=== PATIENT | male | born 1935 | race Caucasian/White ===

== ENCOUNTER 2017-02-08 17:13 | Inpatient (IN) | payer MEDICARE, OTHER ==
[~2017-02-08 17:13] MED LIST: ISOVUE-370 76%-LOCM 1 ML ONE
[2017-02-08 17:53] LABS: Oxyhemoglobin 97.1 % (94.0-97.0); Sodium 141 mmol/L (135-148)
[2017-02-08 17:54] LABS: Mode NRB; Vent NO
[2017-02-08] MEDS ORDERED: Nitroglycerin 0.4 MG TAB (25 Tab Bottle) ONE (18:28)
[2017-02-08 18:37] LABS: Hematocrit 64.8 % (42.0-52.0); Mean Platelet Volume 9.7 fL (7.4-10.4); Red Blood Cell (RBC) Count 6.18 mill/uL (4.70-6.10); White Blood Cell (WBC) Count 5.8 thou/uL (4.8-10.8)
[2017-02-08 18:38] LABS: #Lymphocytes 0.5 thou/uL (1.20-3.40); #Monocytes 0.5 thou/uL (0.11-0.59); #Neutrophils 4.8 thou/uL (1.40-6.50); %Basophils 0.1 % (0.0-1.0); %Eosinophils 0.3 % (0.0-10.0); %Lymphocytes 8.4 % (21.0-51.0); %Monocytes 8.7 % (0.0-10.0)
[2017-02-08 18:47] LABS: Macrocytosis SLIGHT = 6-15 cells (100X) (0-5/hpf)
[2017-02-08 18:50] LABS: Anion Gap 17 mmol/L (10-20); BUN (Urea Nitrogen) 26 mg/dL (8.4-25.7); Calc. Creatinine Clearance 0 mL/min (70-130); Calcium 10.5 mg/dL (7.8-10.44); Carbon Dioxide 23 mmol/L (23-31); Chloride 104 mmol/L (98-107); Estimated GFR-MDRD 48
--- NOTE | 2017-02-08 18:53 | RAD ---
PORTABLE CHEST ONE VIEW 02/08/17 at 5:32 p.m. HISTORY: Dyspnea. FINDINGS/IMPRESSION: Comparison is made with exam of 08/08/14. There are changes of median sternotomy. The heart is enlarged. The aorta is tortuous. There is a lef t sided pacemaker device. There is suggestion of a small right pleural effusion. Mild infiltrate is seen in the right infrahilar region. No pneumothoraces identified. POS: [facility]
[2017-02-08 19:05] LABS: Troponin I 0.062 ng/mL (< 0.028)
[2017-02-08] MEDS ORDERED: Furosemide 40 MG/4 ML VIAL ONE (19:12)
[2017-02-08 19:43] LABS: Lactic Acid - Sepsis 1.9 mmol/L (0.5-2.2)
--- NOTE | 2017-02-08 19:48 | CT ---
CT PULMONARY ANGIOGRAM WITH IV CONTRAST AND 3D POSTPROCESSING 02/08/17 HISTORY: Dyspnea, elevated D-dimer. FINDINGS: No filling defects are seen in the contrast opacified pulmonary artery vasculature to suggest pulmon griselda embolism. There are vascular calcifications without evidence of aneurysmal dilatation of the tho racic aorta. No pericardial effusion is seen. No left sided pleural effusion is noted. There is a mo derate sized right pleural effusion with adjacent atelectatic change. There is mild atelectatic black ge in the left lung base. The heart is enlarged. There are degenerative changes in the spine. There is ascites on the upper abdominal tomograms. IMPRESSION: 1. No CT evidence of pulmonary embolism. 2. Moderate sized right pleural effusion. 3. Ascites. POS: H
[2017-02-08 20:24] LABS: Bilirubin Negative (Negative); Blood, Urine Negative (Negative); Glucose, Urine (Dipstick) Negative (Negative); Ketone, Urine Negative (Negative); Nitrite Negative (Negative); Protein, Urine (Dipstick) Trace mg/dL (Neg-Trace)
[2017-02-08] MEDS ORDERED: Lorazepam 2 MG/ML VIAL ONE (21:12)
[2017-02-08] MEDS ORDERED: Ondansetron HCl/PF 4 MG/2 ML Vial IVP PRN ×2 (22:08→22:14)
[2017-02-08] MEDS ORDERED: Acetaminophen 325 MG TAB PO PRN ×2 (22:08→22:14)
[2017-02-08] MEDS ORDERED: Ondansetron ODT 4 MG TAB SL PRN (22:08)
[2017-02-08] MEDS ORDERED: Milk Of Magnesia 30 ML UDCUP PO PRN (22:14)
[2017-02-08] MEDS ORDERED: Eucerin (Mineral Oil/Petrolatum,White) 30 gm Jar TOP PRN (22:14)
[2017-02-08] MEDS ORDERED: Nitroglycerin 0.4 MG TAB (25 Tab Bottle) SL PRN (22:14)
[2017-02-08] MEDS ORDERED: Senokot 8.6 MG TAB PO PRN (22:14)
[2017-02-08] MEDS ORDERED: Artificial Tears 18 DROP/0.9 ML EA EYE PRN (22:14)
[2017-02-08] MEDS ORDERED: Diabetic Tussin 200 MG/10 ML UDCUP PO PRN (22:14)
[2017-02-08] MEDS ORDERED: Ondansetron ODT 4 MG TAB PO PRN (22:14)
[2017-02-08] MEDS ORDERED: Sodium Chloride 0.65% Nasal 44 ML BOT EA NARE PRN (22:14)
[2017-02-08] MEDS ORDERED: Zolpidem Tartrate 5 MG TAB PO PRN (22:14)
[2017-02-08] MEDS ORDERED: Loperamide HCl 2 MG CAP PO PRN (22:14)
[2017-02-08] MEDS ORDERED: Mag-Al 1200 mg/1200 mg/30 ML UDCUP PO PRN (22:14)
[2017-02-08] MEDS ORDERED: WARFARIN PO PRN (22:33)
[2017-02-08 22:49] VITALS: BMI 27.8
--- NOTE | 2017-02-08 23:31 | HP ---
PRIMARY CARE PHYSICIAN: [facility] call admission. REASON FOR ADMISSION: Acute hypoxic respiratory failure, acute on chronic systolic and diastolic congestive heart failure exacerbation, and altered mental status. HISTORY OF PRESENT ILLNESS: An 81-year-old male who has underlying history of chronic systolic and diastolic heart failure as well as chronic atrial fibrillation on chronic anticoagulation therapy, who was not taking medications appropriately for the last few months. Patient was brought by family member because he was having increasing confusion for the last 2 weeks. Patient was hallucinating at home. He was feeling more depressed. He had a very poor appetite. He lost about 20 pounds in 2 weeks. Patient was also having increasing shortness of breath after exertion. He was getting out of bed very easily, which was new for patient for the last few weeks. Patient's daughter reports that about 5 months ago his and since then his condition is declining. Patient is feeling more depressed than ever. Patient is not on home oxygen at home and his oxygen saturation was very low in the emergency room. Even with BiPAP therapy whenever he was talking or doing exertion, his oxygen saturation was going below 88% in the emergency room. Patient was evaluated with a CT angio, which was negative for pulmonary embolism, but it did show ascites as well as moderate sized pleural effusion. He also had elevated troponin and he also found with hemoconcentration. Patient is able to ambulate by himself, but he is feeling weak all over. He denies any fever, chills, or UTI symptoms. He denies any constipation, diarrhea , melena, or hematochezia. REVIEW OF SYSTEMS: The following complete review of systems was negative, unless otherwise mentioned in the HPI or below: Constitutional: Weight loss or gain, ability to conduct usual activities. Skin: Rash, itching. Eyes: Double vision, pain. ENT/Mouth: Nose bleeding, neck stiffness, pain, tenderness. Cardiovascular: Palpitations, dyspnea on exertion, orthopnea. Respiratory: Shortness of breath, wheezing, cough, hemoptysis, fever or night sweats. Gastrointestinal: Poor appetite, abdominal pain, heartburn, nausea, vomiting, constipation, or diarrhea. Genitourinary: Urgency, frequency, dysuria, nocturia. Musculoskeletal: Pain, swelling. Neurologic/Psychiatric: Anxiety, depression. Allergy/Immunologic: Skin rash, bleeding tendency. Please see my HPI for pertinent positives and negatives. All other review of system is reviewed and negative except as mentioned in the HPI. PAST MEDICAL HISTORY: Chronic atrial fibrillation; chronic anticoagulation with warfarin; systolic and diastolic congestive heart failure; coronary artery disease, required CABG; AICD/pacemaker placement; hypertension. PAST SURGICAL HISTORY: Hernia repair, pacemaker placement, CABG x5 vessel. PSYCHIATRIC HISTORY: Anxiety and depression. FAMILY HISTORY: No strong family history of premature coronary artery disease, stroke, or cancer. SOCIAL HISTORY: Patient is . He denies any tobacco, alcohol, or illicit drug abuse. He is able to manage his daily routine sub-activities of his life. ALLERGIES: No known drug allergies. CURRENT HOME MEDICATIONS: Aspirin 81 mg p.o. daily, Cardizem-CD 180 mg p.o. daily, Coreg 6.25 mg p.o. b.i.d., warfarin 6 mg p.o. daily, Lexapro 10 mg p.o. daily, potassium chloride 10 mEq p.o. daily, clonidine p.r.n., Lasix 20 mg p.o. b.i.d., lisinopril 20 mg p.o. daily. EMERGENCY ROOM COURSE: Patient is given Tylenol 1 gram, Ativan 0.5 mg, Lasix 40 mg, and nitroglycerin 0.4 mg sublingual x2. PHYSICAL EXAMINATION: VITAL SIGNS: Currently in the emergency room, blood pressure 158/103, pulse 94 , respiratory rate 21, temperature 97.3, saturation 93% on BiPAP, weight 99.7 kilograms. GENERAL: Patient is currently alert, awake, appears slightly confused, but follows command. No obvious acute distress. HEENT: Head, normocephalic, atraumatic. Eyes, pupils are round, reactive to light. Extraocular muscle intact. ENT, oropharynx within normal limits. Moist mucous membranes. No oral lesions. No pharyngeal erythema, no exudate. NECK: Supple, no JVD, no thyromegaly, no carotid bruits. LUNGS: Air entry reduced on the right side basilar rales noted. CARDIAC: S1 and S2, appears irregular. No murmur, no gallop, no rub. ABDOMEN: Ascites present. Bowel sounds present. Nontender, nondistended. No organomegaly, no mass, no suprapubic tenderness. BACK EXAMINATION: Unremarkable, no CVA tenderness. EXTREMITIES: Upper extremities, passive movement of all joints are normal. Lower extremities, bilateral lower extremity pitting edema noted. Good peripheral pulsation. SKIN: No skin rash. HEMATOLOGICAL SYSTEM: No lymphadenopathy. PSYCHIATRIC: Normal affect. NEUROLOGIC: Nonfocal examination. SIGNIFICANT LABORATORY DATA AND IMAGIN. EKG based on my review, normal sinus rhythm, nonspecific ST-T changes. 2. Chest x-ray based on my review, pleural effusion and pulmonary vascular congestion. CT angio based on my review, right pleural effusion, ascites, no evidence of PE. 3. CBC: WBC of 5.8, hemoglobin 19.5, platelet 123, MCV 105.0. D-dimer 2.74. ABG: PH of 7.47, bicarbonate 20.7, CO2 of 29.1, O2 of 208.8, saturation 99.5. 4. BMP: Sodium 140, potassium 3.9, chloride 104, carbon dioxide 23, BUN 26, creatinine 1.42, glucose 104, calcium 10.5. 5. CK-MB 4.1, troponin I of 0.062, lactic acid 1.9. BNP of 697.3. Urinalysis , normal. ASSESSMENT AND PLAN AND IMPRESSION: 1. Acute on chronic systolic and diastolic heart failure exacerbation. This patient has bilateral lower extremity edema, basilar rales, pleural effusion on x-ray as well as ascites. He also has hypoxia, all this contributes to his systolic and diastolic heart failure based on his ejection fraction of 40% to 45 % based on echocardiography in 2015. At this point, the patient will require IMCU admission. We will consult Cardiology. We will obtain a repeat echocardiography to assess ejection fraction and other structural abnormality. We will also consult pulmonary as per protocol. Meanwhile, we will treat with Lasix 40 mg IV b.i.d., Coreg 6.25 mg p.o. b.i.d., lisinopril 40 mg p.o. daily. We will monitor input, output chart, daily weight, and laboratory profile and replace electrolytes as needed basis. 2. Acute hypoxic respiratory failure. This patient is pretty much hypoxic and requiring BiPAP in the emergency room. Pulmonary will be consulted as a protocol. He does not need any intubation at this point. Patient is doing overall well with the BiPAP and we will wean BiPAP off as needed. We will monitor closely in IMCU. This patient needs evaluation for home oxygen. This patient also will need evaluation for nocturnal oxygen therapy. 3. Elevated troponin. We will do 3 sets of cardiac enzyme. This is likely demand ischemia. We will continue with aspirin 81 mg p.o. daily along with beta -rubio and IMER inhibitor therapy. 4. Encephalopathy- Altered mental status. This patient has hemoconcentration. He appears to be depressed, underlying depression and psychiatric problem is possible, but may be because of his oxygen saturation contributing to his altered mental status. We will monitor here in the hospital. He does not have any focal neurological deficit and does not have any infectious source of infection. 5. Hemoconcentration, I am suspecting from his prolonged hypoxia and that contributing to his hemoconcentration, but we will monitor his nocturnal oxygen and we will also monitor his CBC while in the hospital. 6. Macrocytosis. We will check B12, folate level tomorrow. 7. Thrombocytopenia. We will monitor platelet count. 8. Anxiety and depression. We will continue Lexapro 10 mg p.o. daily. 9. Atrial fibrillation, chronic, currently rate controlled. We will continue Cardizem-CD 180 mg p.o. daily along with Coreg 6.25 mg p.o. b.i.d. and continue chronic anticoagulation and we will monitor PT/INR. 10. Chronic anticoagulation with warfarin. We will check PT/INR and pharmacy will manage warfarin. 11. Hypertension. Patient is already on Coreg and lisinopril therapy. We will monitor and adjust medication. 12. Deep venous thrombosis prophylaxis, the patient is already on warfarin therapy. Gastrointestinal prophylaxis, Protonix 40 mg p.o. daily. CODE STATUS: I tried to discuss code status with the patient, but patient is not able to make decision at this point. After several times discussion with the code status, he did not say yes or no for resuscitation, but he said that he is ready to go with his , but he is not clear-cutly says what his wishes are and that he and his family member agreed that he will remain as a FULL CODE overnight, but family member will discuss with him again and then we will decide what he makes decision tomorrow. DISPOSITION AND PLAN: Based on clinical course. RY
[2017-02-09 00:18] LABS: Troponin I 0.067 ng/mL (< 0.028)
[2017-02-09 04:46] LABS: Prothrombin Time 17.7 SEC (12.0-14.7)
[2017-02-09 04:49] LABS: #Lymphocytes 0.5 thou/uL (1.20-3.40); #Monocytes 0.4 thou/uL (0.11-0.59); #Neutrophils 3.9 thou/uL (1.40-6.50); %Basophils 0.5 % (0.0-1.0); %Eosinophils 0.5 % (0.0-10.0); %Lymphocytes 10.6 % (21.0-51.0); %Monocytes 8.9 % (0.0-10.0); Hematocrit 61.9 % (42.0-52.0); Mean Platelet Volume 10.1 fL (7.4-10.4); Red Blood Cell (RBC) Count 5.91 mill/uL (4.70-6.10); White Blood Cell (WBC) Count 4.9 thou/uL (4.8-10.8)
[2017-02-09] MEDS ORDERED: Furosemide 40 MG/4 ML VIAL SLOW IVP SCH ×2 (06:00→10:39)
[2017-02-09 06:19] LABS: Troponin I 0.044 ng/mL (< 0.028)
[2017-02-09 06:38] LABS: Chloride 105 mmol/L (98-107)
[2017-02-09 06:39] LABS: Calcium 10.4 mg/dL (7.8-10.44); Magnesium 2.5 mg/dL (1.6-2.6)
[2017-02-09 06:40] LABS: Globulin 3.3 g/dL (2.4-3.5); Protein, Total 7.4 g/dL (5.8-8.1)
[2017-02-09 06:41] LABS: Anion Gap 20 mmol/L (10-20); Carbon Dioxide 20 mmol/L (23-31)
[2017-02-09 06:42] LABS: Bilirubin, Total 3.4 mg/dL (0.2-1.2)
[2017-02-09 06:43] LABS: Alkaline Phosphatase 101 U/L (40-150); Calc. Creatinine Clearance 47 mL/min (70-130); Estimated GFR-MDRD 47
[2017-02-09 06:44] LABS: BUN (Urea Nitrogen) 25 mg/dL (8.4-25.7)
[2017-02-09 06:45] LABS: AST (SGOT) 27 U/L (5-34)
[2017-02-09 06:46] LABS: ALT (SGPT) 17 U/L (8-55); Uric Acid 8.9 mg/dL (3.5-7.2)
[2017-02-09] MEDS ORDERED: FLU VACC TS2017-18 (>65YR) 0.5 ML SYRINGE IM ONE (09:00)
[2017-02-09] MEDS ORDERED: Folic Acid 1 MG TAB PO SCH (09:00)
[2017-02-09] MEDS ORDERED: Cyanocobalamin (Vitamin B-12) 1,000 MCG TAB PO SCH (09:00)
[2017-02-09] MEDS ORDERED: Enoxaparin Sodium 40 MG/0.4 ML SYRINGE SC SCH (09:00)
[2017-02-09] MEDS: Lisinopril 20 MG TAB PO SCH (09:18)
[2017-02-09] MEDS: Carvedilol 6.25 MG TAB PO SCH ×2 (09:19→17:41)
[2017-02-09] MEDS: Escitalopram Oxalate 10 mg Tablet PO SCH (09:20)
[2017-02-09] MEDS: Sodium Chloride 0.45% 1,000 ML IV SCH (12:58)
--- NOTE | 2017-02-09 17:39 | PDOC.PN ---
- Subjective Encounter Start Date: 02/09/17 Encounter Start Time: 17:37 breathing better off bipap no cp no f/c no n/v - Objective Resuscitation Status: Resuscitation Status FULL:Full Resuscitation MAR Reviewed: Yes Vital Signs & Weight: Vital Signs (12 hours) Temp Pulse Resp BP BP Pulse Ox 02/09/17 16:13 70 16 106/63 96 02/09/17 15:08 97.7 F 70 18 94/63 98 02/09/17 13:31 70 12 02/09/17 12:00 97.7 F 69 18 105/66 100 02/09/17 09:19 130/74 02/09/17 09:18 130/74 02/09/17 07:29 96.9 F L 100 20 100 02/09/17 07:00 96.9 F L 100 20 154/91 H 100 02/09/17 06:30 80 20 154/91 H 100 02/09/17 06:22 100 02/09/17 06:17 93 16 Weight Weight 188 lb 6.4 oz I&O: 02/08/17 02/09/17 02/10/17 06:59 06:59 06:59 Intake Total 100 240 Output Total 800 2500 Balance -700 -2260 Result Diagrams: 02/09/17 04:26 02/09/17 05:37 Phys Exam - Physical Examination Constitutional: NAD HEENT: moist MMs Neck: no JVD some bibasilar rales Cardiovascular: no significant murmur, irregular Gastrointestinal: non-tender Musculoskeletal: pulses present Neurological: moves all 4 limbs Psychiatric: A&O x 3 Dx/Plan (1) Acute respiratory failure Code(s): J96.00 - ACUTE RESPIRATORY FAILURE, UNSP W HYPOXIA OR HYPERCAPNIA Status: Acute (2) Afib Code(s): I48.91 - UNSPECIFIED ATRIAL FIBRILLATION Status: Acute (3) CAD (coronary artery disease) Code(s): I25.10 - ATHSCL HEART DISEASE OF [place] CORONARY ARTERY W/O ANG PCTRS Status: Acute Comment: s/p aicd (4) Acute on chronic combined systolic and diastolic CHF (congestive heart failure) Code(s): I50.43 - ACUTE ON CHRONIC COMBINED SYSTOLIC AND DIASTOLIC HRT FAIL Status: Acute - Plan * cont lasix * pt/ot * monitor lytes
[2017-02-09] MEDS: Warfarin Sodium 5 MG TAB PO SCH (17:41)
--- NOTE | 2017-02-09 20:43 | CON ---
DATE OF CONSULTATION: 02/09/2017 HISTORY OF PRESENT ILLNESS: Mr. Ferris is a very pleasant 81-year-old male. I interviewed him and his daughter. Apparently, he lost his 5 months ago. He told me very quickly the God gave him the best a man could have. He has lost all desire to live since that time. He did say he is r edoing 3 homes and wants to get them finished, but he quit eating, quit taking all of his medication s, quit drinking. He has been progressively less active. He has been in the hospital here since 2014, although he was seen in the emergency room in September for c omplaints of abdominal discomfort. FAMILY HISTORY: Negative for lung disease at an early age. SOCIAL HISTORY: He is a nonsmoker, nondrinker. REVIEW OF SYSTEMS: Otherwise negative. PHYSICAL EXAMINATION: VITAL SIGNS: Afebrile, heart rate is in the 60s. Blood pressure 130/74, respiratory rate 17, oxime try is 100% on 2 liters. HEAD AND NECK: Unremarkable. LUNGS: Remarkable for decreased breath sounds at his right base. HEART: Regular rhythm, no S3. ABDOMEN: Soft and nontender. EXTREMITIES: Without clubbing, cyanosis, or edema. LABORATORY DATA: White blood cell count 5.8, hematocrit was 64, platelets 123 hematocrit is down to 61. Sodium 141, potassium 4.2, chloride 105, bicarbonate 20, BUN 25, creatinine 1.43. IMPRESSION: Hyperosmolar state, most likely secondary to severe intravascular volume depletion. He does have a right pleural effusion on his radiograph and CT. I do not feel he has decompensated he art failure. I doubt he has polycythemia rubra vera. I doubt this is sleep apnea related. His his tory supports severe volume depletion. I suspect his baseline creatinine is about 0.6. He has very little muscle mass at this time. He should continue with hydration. He should not be given diuretics at this point. I met with him at length and his daughter and asked them to communicate about his care needs. Palliative care cons ult would be appropriate in my opinion, says he wants to get these houses finish, so it did not bere en his children with selling on unremodelled houses. I do not think medication can fix his appropri ate reactive depression over the loss of his . Counseling may be helpful. He has soledad so a urch payable manager may be helpful, but these are issues as outpatient. I will be happy to follow with the other physicians caring for him.
[2017-02-10] MEDS: Sodium Chloride 0.45% 1,000 ML IV SCH ×2 (02:10→14:47)
[2017-02-10 06:14] LABS: Prothrombin Time 18.4 SEC (12.0-14.7)
[2017-02-10 06:16] LABS: #Eosinphils 0.1 thou/uL (0.0-0.7); #Lymphocytes 0.4 thou/uL (1.20-3.40); #Monocytes 0.5 thou/uL (0.11-0.59); #Neutrophils 4.1 thou/uL (1.40-6.50); %Eosinophils 1.2 % (0.0-10.0); %Lymphocytes 7.7 % (21.0-51.0); %Monocytes 10.7 % (0.0-10.0); Mean Platelet Volume 9.7 fL (7.4-10.4); Red Blood Cell (RBC) Count 5.16 mill/uL (4.70-6.10); White Blood Cell (WBC) Count 5.1 thou/uL (4.8-10.8)
[2017-02-10 06:31] LABS: Anion Gap 13 mmol/L (10-20); BUN (Urea Nitrogen) 23 mg/dL (8.4-25.7); BUN/Creatinine Ratio 17.97; Calc. Creatinine Clearance 53 mL/min (70-130); Calcium 9.2 mg/dL (7.8-10.44); Carbon Dioxide 27 mmol/L (23-31); Chloride 102 mmol/L (98-107); Estimated GFR-MDRD 54; Magnesium 2.3 mg/dL (1.6-2.6); Phosphorus 3.7 mg/dL (2.3-4.7)
[2017-02-10] MEDS: Lisinopril 20 MG TAB PO SCH (08:00)
[2017-02-10] MEDS: Escitalopram Oxalate 10 mg Tablet PO SCH (08:00)
[2017-02-10] MEDS: Carvedilol 6.25 MG TAB PO SCH ×2 (08:01→16:36)
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
--- NOTE | 2017-02-10 14:58 | PDOC.PN ---
- Subjective Encounter Start Date: 02/10/17 Encounter Start Time: 11:45 Subjective: feels better, no sob - Objective Resuscitation Status: Resuscitation Status DNR:Do Not Resuscitate MAR Reviewed: Yes Vital Signs & Weight: Vital Signs (12 hours) Temp Pulse Resp BP BP BP Pulse Ox 02/10/17 12:00 97.6 F 69 18 109/71 97 02/10/17 11:38 75 12 95 02/10/17 08:01 121/84 02/10/17 08:00 97.5 F L 74 18 121/84 121/84 93 L 02/10/17 06:33 76 12 99 02/10/17 04:25 97.5 F L 70 18 117/72 96 Weight Weight 188 lb 6.4 oz I&O: 02/09/17 02/10/17 02/11/17 06:59 06:59 06:59 Intake Total 100 2135 Output Total 800 5550 Balance -700 -1319 Result Diagrams: 02/10/17 05:56 02/10/17 05:56 Phys Exam - Physical Examination HEENT: PERRLA, moist MMs Neck: no JVD, supple Respiratory: no wheezing, no rales Cardiovascular: RRR, no significant murmur Gastrointestinal: soft, non-tender, positive bowel sounds Musculoskeletal: pulses present Neurological: non-focal, moves all 4 limbs Psychiatric: A&O x 3 a bit anxious Dx/Plan (1) Dehydration Code(s): E86.0 - DEHYDRATION Status: Acute (2) CHF (congestive heart failure) Code(s): I50.9 - HEART FAILURE, UNSPECIFIED Status: Chronic Qualifiers: Congestive heart failure type: combined (3) Afib Code(s): I48.91 - UNSPECIFIED ATRIAL FIBRILLATION Status: Chronic Qualifiers: Atrial fibrillation type: paroxysmal Qualified Code(s): I48.0 - Paroxysmal atrial fibrillation (4) CAD (coronary artery disease) Code(s): I25.10 - ATHSCL HEART DISEASE OF [place] CORONARY ARTERY W/O ANG PCTRS Status: Chronic Qualifiers: Coronary Disease-Associated Artery/Lesion type: bypass graft [place] vs. transplanted heart: [place] heart Associated angina: without angina Qualified Code(s): I25.810 - Atherosclerosis of coronary artery bypass graft(s) without angina pectoris - Plan gentle hydration -: pastoral consult -: will need outpt counselling to be arranged, will inform his PCP on dc -: ef is 35% on echo with diastolic dysfunction -: dc plan in am, d/w . * . Review of Systems - Medications/Allergies Allergies/Adverse Reactions: Allergies Allergy/AdvReac Type Severity Reaction Status Date / Time No Known Allergies Allergy Verified 08/08/14 20:05 Medications: Current Medications Acetaminophen (Tylenol) 650 mg PO Q4H PRN PRN Reason: Headache/Fever or Pain Al Hydroxide/Mg Hydroxide (Maalox) 30 ml PO Q6H PRN PRN Reason: Heartburn or Indigestion Albuterol/Ipratropium (Duoneb) 3 ml NEB [id number] [facility] Last Admin: 02/10/17 11:38 Dose: 3 ml Artificial Tears (Tears Naturale) 0 drop EA EYE PRN PRN PRN Reason: Dry Eyes Aspirin (Aspirin Chewable) 81 mg PO DAILY [facility] Last Admin: 02/10/17 08:00 Dose: 81 mg Carvedilol (Coreg) 6.25 mg PO BID-WM [facility] Last Admin: 02/10/17 08:01 Dose: 6.25 mg Diltiazem HCl (Cardizem Cd) 180 mg PO DAILY [facility] Last Admin: 02/10/17 08:00 Dose: 180 mg Escitalopram Oxalate (Lexapro) 10 mg PO DAILY [facility] Last Admin: 02/10/17 08:00 Dose: 10 mg Guaifenesin (Robitussin Sf) 200 mg PO Q4H PRN PRN Reason: Cough Hydralazine HCl (Apresoline) 10 mg SLOW IVP Q4H PRN PRN Reason: Systolic BP > 180 Last Admin: 02/09/17 04:49 Dose: 10 mg Sodium Chloride (1/2 Normal Saline) 1,000 mls @ 75 mls/hr IV .[id number] [facility] Last Admin: 02/10/17 14:47 Dose: 1,000 mls Lisinopril (Zestril) 20 mg PO DAILY [facility] Last Admin: 02/10/17 08:00 Dose: 20 mg Loperamide HCl (Imodium) 2 mg PO PRN PRN PRN Reason: Diarrhea/Loose Stools Magnesium Hydroxide (Milk Of Magnesium) 30 ml PO DAILYPRN PRN PRN Reason: Constipation Mineral Oil/White Petrolatum (Eucerin Cream) 0 gm TOP BIDPRN PRN PRN Reason: Dry Skin Miscellaneous Medication (Pharmacy To Dose) 1 each PO PRN PRN PRN Reason: A.FIB Nitroglycerin (Nitrostat) 0.4 mg SL Q5MIN PRN PRN Reason: Chest Pain Ondansetron HCl (Zofran Odt) 4 mg PO Q6H PRN PRN Reason: Nausea/Vomiting Ondansetron HCl (Zofran) 4 mg IVP Q6H PRN PRN Reason: Nausea/Vomiting Pantoprazole Sodium (Protonix) 40 mg PO DAILY [facility] Last Admin: 02/10/17 08:00 Dose: 40 mg Senna (Senokot) 2 tab PO HSPRN PRN PRN Reason: Constipation Sodium Chloride ([place] Nasal [place] 0.65%) 0 ml EA NARE QIDPRN PRN PRN Reason: Nasal Congestion Sodium Chloride (Flush - Normal Saline) 10 ml IVF Q12HR [facility] Last Admin: 02/10/17 08:05 Dose: Not Given Sodium Chloride (Flush - Normal Saline) 10 ml IVF PRN PRN PRN Reason: Saline Flush Last Admin: 02/09/17 06:50 Dose: 10 ml Warfarin Sodium (Coumadin) 5 mg PO 1700 [facility] Last Admin: 02/09/17 17:41 Dose: 5 mg
[2017-02-10] MEDS: Warfarin Sodium 5 MG TAB PO SCH (16:37)
[2017-02-11] MEDS: Sodium Chloride 0.45% 1,000 ML IV SCH (04:07)
[2017-02-11 05:32] LABS: #Eosinphils 0.1 thou/uL (0.0-0.7); #Lymphocytes 0.5 thou/uL (1.20-3.40); #Monocytes 0.6 thou/uL (0.11-0.59); %Basophils 0.5 % (0.0-1.0); %Eosinophils 2.2 % (0.0-10.0); %Lymphocytes 8.8 % (21.0-51.0); %Monocytes 10.6 % (0.0-10.0); Hematocrit 53.4 % (42.0-52.0); Red Blood Cell (RBC) Count 5.02 mill/uL (4.70-6.10); White Blood Cell (WBC) Count 5.2 thou/uL (4.8-10.8)
[2017-02-11 05:34] LABS: Prothrombin Time 17.7 SEC (12.0-14.7)
[2017-02-11 05:47] LABS: Anion Gap 11 mmol/L (10-20); BUN (Urea Nitrogen) 24 mg/dL (8.4-25.7); BUN/Creatinine Ratio 23.76; Calc. Creatinine Clearance 67 mL/min (70-130); Calcium 8.6 mg/dL (7.8-10.44); Carbon Dioxide 24 mmol/L (23-31); Chloride 101 mmol/L (98-107); Estimated GFR-MDRD 71; Phosphorus 2.7 mg/dL (2.3-4.7)
[2017-02-11] MEDS: Escitalopram Oxalate 10 mg Tablet PO SCH (07:47)
[2017-02-11] MEDS: Lisinopril 20 MG TAB PO SCH (07:47)
[2017-02-11] MEDS: Carvedilol 6.25 MG TAB PO SCH (07:48)
[2017-02-11 11:41] VITALS: BP 124/76; TEMP 98.1
--- NOTE | 2017-02-11 11:47 | PDOC.PN ---
- Subjective Encounter Start Date: 02/11/17 Encounter Start Time: 06:45 Subjective: feels better, wants to go home and attend his court case this afternoon -: no sob - Objective Resuscitation Status: Resuscitation Status DNR:Do Not Resuscitate MAR Reviewed: Yes Vital Signs & Weight: Vital Signs (12 hours) Temp Pulse Resp BP BP BP Pulse Ox 02/11/17 11:40 98.1 F 68 20 124/76 95 02/11/17 08:08 97.6 F 71 20 134/89 97 02/11/17 08:00 97.6 F 71 20 95 02/11/17 07:48 134/89 02/11/17 07:47 134/89 02/11/17 07:01 70 18 96 02/11/17 04:00 97.8 F 73 18 109/73 96 02/11/17 01:31 99 02/11/17 00:26 69 16 96 02/11/17 00:00 98.1 F 73 18 100/64 96 Weight Admit Weight 188 lb 6.4 oz Weight 188 lb 6.4 oz I&O: 02/10/17 02/11/17 02/12/17 06:59 06:59 06:59 Intake Total 2135 2700 Output Total 5550 350 200 Balance -3415 2350 -200 Result Diagrams: 02/11/17 04:31 02/11/17 04:31 Phys Exam - Physical Examination HEENT: PERRLA, moist MMs Neck: no JVD, supple Respiratory: no wheezing, no rales Cardiovascular: RRR, no significant murmur Gastrointestinal: soft, non-tender, positive bowel sounds Musculoskeletal: no edema, pulses present Neurological: non-focal, moves all 4 limbs Psychiatric: A&O x 3 Dx/Plan (1) Dehydration Code(s): E86.0 - DEHYDRATION Status: Acute (2) CHF (congestive heart failure) Code(s): I50.9 - HEART FAILURE, UNSPECIFIED Status: Chronic Qualifiers: Congestive heart failure type: combined (3) Afib Code(s): I48.91 - UNSPECIFIED ATRIAL FIBRILLATION Status: Chronic Qualifiers: Atrial fibrillation type: paroxysmal Qualified Code(s): I48.0 - Paroxysmal atrial fibrillation (4) CAD (coronary artery disease) Code(s): I25.10 - ATHSCL HEART DISEASE OF [place] CORONARY ARTERY W/O ANG PCTRS Status: Chronic Qualifiers: Coronary Disease-Associated Artery/Lesion type: bypass graft [place] vs. transplanted heart: [place] heart Associated angina: without angina Qualified Code(s): I25.810 - Atherosclerosis of coronary artery bypass graft(s) without angina pectoris - Plan hemostable -: still has mild dehydration, wants to go home -: may dc home -: adviced to drink atleast 2 liters of free water for next 2 days -: to f/u with PCP in 1 week, will need outpt counselling for extended grief/d * .
[2017-02-11] MEDS ORDERED: Warfarin Sodium 7.5 MG TAB PO SCH (17:00)
--- NOTE | 2017-02-11 23:11 | DIS ---
DATE OF ADMISSION: 02/08/2017 DATE OF DISCHARGE: 02/11/2017 DISCHARGE DISPOSITION: To home. PRIMARY DISCHARGE DIAGNOSES: 1. Dehydration with hemoconcentration. 2. History of congestive heart failure with systolic and diastolic dysfunction , chronic atrial fibrillation with initial rapid ventricular response, resolved. 3. Coronary artery disease. 4. Depression. PROCEDURES DONE DURING HOSPITALIZATION: The patient has had CT angio chest done on the day of admission, which showed no evidence of PE. There was moderate sized right pleural effusion with ascites. Echo with 2D Doppler done showed an EF of 35-40% and diastolic dysfunction. The patient had an H\T\H of 19 and 64, with platelet count of 123 on the day of admission. His discharged H\T\H was 16 and 53. He had a white count of 5 on the day of discharge. Discharge BUN and creatinine was 24 and 1.0. Troponin I was indeterminate with peaking up to 0.06. BNP was 697. Initial BUN and creatinine were 26 and 1.4. DISCHARGE MEDICATIONS: Coumadin 6.5 mg p.o. daily, lisinopril 20 mg p.o. daily , Lexapro 10 mg p.o. daily, diltiazem CD 180 mg p.o. daily, Coreg 6.25 mg p.o. twice daily, aspirin 81 mg p.o. daily. ALLERGIES: No known drug allergies. DISCHARGE PLAN: The patient is to follow up with his primary care physician in 1 week. BRIEF COURSE DURING HOSPITALIZATION: The patient initially was brought to the emergency room as he was not taking medications appropriately and had been hallucinating at home. He was feeling more depressed with poor appetite and had lost nearly 20 pounds in 2 weeks. The patient initially required BiPAP in the ER and was placed in IMCU. Patient had severe hemoconcentration and was gently hydrated in view of his systolic and diastolic heart failure. He has had consultation with Dr. Polk. The patient appears to be depressed due to losing his and has been going downhill with not eating or drinking. He requires outpatient counseling services and psychiatrist appointment via a primary care physician. He is having a court case this afternoon and would like to be discharged this morning. He has otherwise remained hemodynamically stable and has been cleared by Pulmonology for discharge. Please see a face-to- face documentation on [facility] for the day of discharge. [facility]
== END 2017-02-11 14:00 | disposition home or self-care (01) | DRG 640 ==
LOC: ERS 17:13 → IMCU/EMU 20:30 → T4-B 02-09 20:54
PROVIDERS: ADMIT Internal Medicine; ATTEND Internal Medicine
PROC: 5A09357 Assistance with Respiratory Ventilation, Less than 24 Consecutive Hours, Continuous Positive Airway Pressure (ICD-10-PCS; principal; 2017-02-08)
DX: E86.0 Dehydration (principal); G93.40 Encephalopathy, unspecified; J96.01 Acute respiratory failure with hypoxia; E87.0 Hyperosmolality and hypernatremia; I50.42 Chronic combined systolic (congestive) and diastolic (congestive) heart failure; I11.0 Hypertensive heart disease with heart failure; D69.6 Thrombocytopenia, unspecified; I48.2 Chronic atrial fibrillation; I25.10 Atherosclerotic heart disease of native coronary artery without angina pectoris; F32.9 Major depressive disorder, single episode, unspecified; F41.9 Anxiety disorder, unspecified; Z95.810 Presence of automatic (implantable) cardiac defibrillator; Z79.01 Long term (current) use of anticoagulants
CPT/HCPCS: 36415; 71010; 71275; 80048; 80053; 80069; 81003; 82553; 82607; 82746; 82805; 83605; 83735; 83880; 84484; 84550; 85025; 85379; 85610; 87086; 90471; 90682; 90732; 93005; 93306; 94640; 94660; 96374; 96375; A4216; G0008; G0009; J1940; J2060; J7620; Q2036

== ENCOUNTER 2017-05-23 15:13 | Emergency (ER) | payer MEDICARE, OTHER ==
--- NOTE | 2017-05-23 16:58 | RAD ---
THREE VIEWS OF THE LEFT ANKLE 05/23/17 COMPARISON: None. HISTORY: Tripped on a vine two weeks ago and fell with left foot and ankle pain. FINDINGS: Three views left ankle shows no evidence of acute fracture or dislocation. Surgical clips are seen al rikki the medial malleolus. Mild soft tissue swelling is seen. No degenerative changes are present. IMPRESSION: No evidence of acute osseous abnormality. POS: [facility]
[2017-05-23 17:23] LABS: Hemoglobin 16.1 g/dL (14.0-18.0); Mean Corpuscular HGB CONC 31.5 g/dL (32.0-36.0); Mean Corpuscular Hemoglobin 33.5 pg (27.0-31.0); Platelet Count 132 thou/uL (130-400); RBC Distribution Width 14.6 % (11.5-14.5); Red Blood Cell (RBC) Count 4.81 mill/uL (4.70-6.10); White Blood Cell (WBC) Count 6.7 thou/uL (4.8-10.8)
[2017-05-23 17:39] LABS: #Lymphocytes 0.6 thou/uL (1.20-3.40); #Monocytes 0.6 thou/uL (0.11-0.59); #Neutrophils 5.5 thou/uL (1.40-6.50); %Eosinophils 0.1 % (0.0-10.0); %Monocytes 9.4 % (0.0-10.0); %Neutrophils 81.5 % (42.0-75.0); MDiff Complete? YES; Macrocytosis SLIGHT = 6-15 cells (100X) (0-5/hpf); PLT Morphology Comment Appears Adequate
[2017-05-23 17:41] LABS: ALT (SGPT) 16 U/L (8-55); AST (SGOT) 24 U/L (5-34); Albumin 4.2 g/dL (3.4-4.8); Alkaline Phosphatase 116 U/L (40-150); Anion Gap 13 mmol/L (10-20); BUN (Urea Nitrogen) 21 mg/dL (8.4-25.7); Bilirubin, Total 3.4 mg/dL (0.2-1.2); Calc. Creatinine Clearance 0 mL/min (70-130); Calcium 10.2 mg/dL (7.8-10.44); Carbon Dioxide 26 mmol/L (23-31); Chloride 105 mmol/L (98-107); Estimated GFR-MDRD 56; Globulin 3.1 g/dL (2.4-3.5); Glucose 143 mg/dL (83-110); Protein, Total 7.3 g/dL (5.8-8.1); Sodium 140 mmol/L (136-145)
--- NOTE | 2017-05-23 19:52 | ULT ---
LEFT LOWER EXTREMITY VENOUS DUPLEX STUDY: 05/23/17 HISTORY: Left lower extremity pain and edema. Deep veins of left lower extremity evaluated with ultrasound doppler, color doppler, spectral analysi s and compression. Deep veins show normal compression and blood flow. No evidence of DVT. IMPRESSION: No evidence of left lower extremity DVT. POS: [facility]
== END 2017-05-23 18:45 | disposition home or self-care (01) ==
LOC: ERS 15:13
DX: S90.812A Abrasion, left foot, initial encounter (principal); L03.116 Cellulitis of left lower limb; I25.10 Atherosclerotic heart disease of native coronary artery without angina pectoris; I10 Essential (primary) hypertension; Z79.01 Long term (current) use of anticoagulants; Z79.899 Other long term (current) drug therapy; W22.8XXA Striking against or struck by other objects, initial encounter
CPT/HCPCS: 80053; 85025; 86140; 96365; J3370

== ENCOUNTER 2017-06-12 15:18 | Emergency (ER) | payer MEDICARE, OTHER ==
[2017-06-12 17:19] LABS: #Eosinphils 0.1 thou/uL (0.0-0.7); #Lymphocytes 0.9 thou/uL (1.20-3.40); #Monocytes 0.5 thou/uL (0.11-0.59); #Neutrophils 3.2 thou/uL (1.40-6.50); %Basophils 0.8 % (0.0-1.0); %Eosinophils 1.4 % (0.0-10.0); %Lymphocytes 18.5 % (21.0-51.0); %Monocytes 10.6 % (0.0-10.0); %Neutrophils 68.8 % (42.0-75.0); Hemoglobin 14.6 g/dL (14.0-18.0); Mean Corpuscular HGB CONC 32.1 g/dL (32.0-36.0); Mean Corpuscular Hemoglobin 34.3 pg (27.0-31.0); Mean Platelet Volume 8.4 fL (7.4-10.4); Platelet Count 133 thou/uL (130-400); RBC Distribution Width 14.4 % (11.5-14.5); Red Blood Cell (RBC) Count 4.27 mill/uL (4.70-6.10); White Blood Cell (WBC) Count 4.6 thou/uL (4.8-10.8)
--- NOTE | 2017-06-12 17:35 | ULT ---
LEFT LOWER EXTREMITY VENOUS DUPLEX STUDY: 06/12/17 Ultrasound and doppler studies with color doppler, spectral analysis and compression studies performe d in the deep veins of the left lower extremity. HISTORY: Left lower extremity pain and edema. Redness. Recent injury. Deep veins of the left lower extremity evaluated included common femoral, profunda femoral, superfici al femoral, popliteal and posterior tibial veins. These findings show normal compression and blood flow. No evidence of DVT. IMPRESSION: No evidence of left lower extremity DVT. POS: [facility]
[2017-06-12 17:41] LABS: ALT (SGPT) 15 U/L (8-55); AST (SGOT) 24 U/L (5-34); Albumin 3.9 g/dL (3.4-4.8); Alkaline Phosphatase 114 U/L (40-150); Anion Gap 14 mmol/L (10-20); BUN (Urea Nitrogen) 25 mg/dL (8.4-25.7); Bilirubin, Total 1.5 mg/dL (0.2-1.2); Calc. Creatinine Clearance 0 mL/min (70-130); Carbon Dioxide 21 mmol/L (23-31); Chloride 108 mmol/L (98-107); Estimated GFR-MDRD 51; Glucose 78 mg/dL (83-110); Potassium 4.4 mmol/L (3.5-5.1); Protein, Total 6.9 g/dL (5.8-8.1); Sodium 139 mmol/L (136-145)
[2017-06-12] MEDS ORDERED: Clindamycin/D5W 900 mg/50 ml Premix Bag ONE (18:17)
== END 2017-06-12 19:20 | disposition home or self-care (01) ==
LOC: ERS 15:18
DX: S90.512D Abrasion, left ankle, subsequent encounter (principal); L03.116 Cellulitis of left lower limb; I25.10 Atherosclerotic heart disease of native coronary artery without angina pectoris; I10 Essential (primary) hypertension; X58.XXXD Exposure to other specified factors, subsequent encounter
CPT/HCPCS: 36415; 80053; 83605; 85025; 87040; 96365; J3490

== ENCOUNTER 2017-08-20 14:29 | Inpatient (IN) | payer MEDICARE, OTHER ==
[2017-08-20 16:05] LABS: #Lymphocytes 0.4 thou/uL (1.20-3.40); #Monocytes 0.4 thou/uL (0.11-0.59); #Neutrophils 3.4 thou/uL (1.40-6.50); %Eosinophils 0.4 % (0.0-10.0); %Lymphocytes 10.3 % (21.0-51.0); %Monocytes 9.6 % (0.0-10.0); %Neutrophils 79.7 % (42.0-75.0); Mean Corpuscular HGB CONC 30.7 g/dL (32.0-36.0); Mean Corpuscular Hemoglobin 33.1 pg (27.0-31.0); Mean Platelet Volume 9.4 fL (7.4-10.4); Platelet Count 113 thou/uL (130-400); RBC Distribution Width 14.5 % (11.5-14.5); Red Blood Cell (RBC) Count 5.14 mill/uL (4.70-6.10); White Blood Cell (WBC) Count 4.2 thou/uL (4.8-10.8)
[2017-08-20 16:21] LABS: Band 3 % (5-11); Large Platelets SLIGHT; Lymphocytes 3 % (21-51); MDiff Complete? YES; Macrocytosis SLIGHT = 6-15 cells (100X) (0-5/hpf); Monocytes 10 % (0-10); Neutrophil 80 % (42-75); PLT Morphology Comment Appears Decreased; Polychromasia SLIGHT = 2-3 cells (100X) (0-2/hpf); Reactive Lymphocytes 4 % (0-10)
[2017-08-20 16:24] LABS: ALT (SGPT) 19 U/L (8-55); AST (SGOT) 29 U/L (5-34); Albumin 4.2 g/dL (3.4-4.8); Alkaline Phosphatase 121 U/L (40-150); Anion Gap 15 mmol/L (10-20); BUN (Urea Nitrogen) 28 mg/dL (8.4-25.7); Bilirubin, Total 2.8 mg/dL (0.2-1.2); Calc. Creatinine Clearance 0 mL/min (70-130); Calcium 10.3 mg/dL (7.8-10.44); Carbon Dioxide 20 mmol/L (23-31); Chloride 109 mmol/L (98-107); Estimated GFR-MDRD 50; Globulin 3.2 g/dL (2.4-3.5); Glucose 114 mg/dL (83-110); Protein, Total 7.4 g/dL (5.8-8.1); Sodium 140 mmol/L (136-145)
[2017-08-20 19:49] LABS: CKMB 4.2 ng/mL (0-6.6)
[2017-08-20] MEDS ORDERED: Furosemide 40 MG/4 ML VIAL ONE (20:04)
--- NOTE | 2017-08-20 20:38 | RAD ---
SINGLE VIEW OF THE CHEST: 08/20/17 INDICATION: Dyspnea with history of lower extremity cellulitis. COMPARISON: Prior exam dated 02/08/17. FINDINGS: There is severe cardiomegaly. There is mild to moderate pulmonary vascular congestion and perihilar i nterstitial prominence likely related to edema. There is a small right sided pleural effusion. There is mild right basilar atelectasis. There is a dual lead pacemaker overlying the left chest wall. No a cute osseous abnormality is evident. IMPRESSION: Findings of CHF. POS: [facility]
[2017-08-20 21:04] LABS: INR-International Normal Ratio 1.4; Prothrombin Time 17.7 SEC (12.0-14.7)
[2017-08-20] MEDS ORDERED: Vancomycin HCl 1.5 GM in Sodium Chloride 0.9% 250 ML 300 ML IVPB SCH ×2 (21:15→21:30)
[2017-08-20] MEDS ORDERED: Nitroglycerin 2% Ointment 1 INCH/1 GM Packet ONE (21:20)
--- NOTE | 2017-08-20 21:59 | ULT ---
DOPPLER VENOUS ULTRASOUND LEFT LOWER EXTREMITY: 08/20/17 INDICATION: Left leg edema and pain. TECHNIQUE: Yates scale, color doppler and vascular duplex with spectral analysis was performed of the deep venous structures of the left lower extremity. Common femoral vein, superficial femoral vein, popliteal vei n, posterior tibial vein, proximal greater saphenous and profunda veins were assessed. FINDINGS: Normal compression, flow, and augmentation seen within the deep venous structures of the left lower e xtremity. There is subcutaneous edema within the left lower extremity. IMPRESSION: No evidence of DVT to the left lower extremity. POS: [facility]
[2017-08-20 22:42] LABS: Troponin I 0.031 ng/mL (< 0.028)
[2017-08-20] MEDS ORDERED: Ondansetron HCl/PF 4 MG/2 ML Vial IVP PRN (23:26)
[2017-08-20] MEDS ORDERED: Ondansetron ODT 4 MG TAB SL PRN (23:26)
[2017-08-20] MEDS ORDERED: Acetaminophen 325 MG TAB PO PRN (23:26)
[2017-08-21 01:19] LABS: Troponin I 0.176 ng/mL (< 0.028)
[2017-08-21] MEDS ORDERED: VANCOMYCIN/ RENALLY ADJUST ANTIBIOTICS IVPB PRN (01:30)
[2017-08-21] MEDS ORDERED: Nitroglycerin 0.4 MG TAB (25 Tab Bottle) PO PRN (01:31)
[2017-08-21] MEDS ORDERED: Acetaminophen 325 MG TAB PO PRN (01:34)
[2017-08-21] MEDS ORDERED: Calcium Carbonate 500 MG ChewTAB PO PRN (01:34)
[2017-08-21] MEDS ORDERED: Senokot 8.6 MG TAB PO PRN (01:34)
--- NOTE | 2017-08-21 01:48 | HP ---
DATE OF ADMISSION: 08/20/2017 PRIMARY CARE PHYSICIAN: Chuy Yates MD CHIEF COMPLAINT: Bilateral lower extremity redness. The patient was sent from his PCP's office. HISTORY OF PRESENT ILLNESS: The patient is an 82-year-old white male with coronary artery disease, status post CABG; chronic atrial fibrillation; congestive heart failure; and hypertension, who presented to the emergency room from his PCP's office with above complaints. Approximately 2 months ago, the patient presented to this facility with injury to his left foot along with redness and swelling. He was diagnosed with cellulitis and was discharged home on Keflex and Bactrim after IV antibiotic dose in the ER. The patient noticed some improvement after the above treatment. However, recently he noticed worsening bilateral lower extremity swelling. He also had some low grade fever, however, did not record his temperature. He has been short of breath over the past couple of days and has been unable to carry out his usual activities. He has not been taking his medications regularly. He has all of his medications at home. He denies any chest pain, palpitations, lightheadedness, dizziness, or syncope. No recent immobilization, travel reported. In the emergency room, initial vital signs showed temperature 97.7, respiration of 16, pulse rate of 89 with a blood pressure of 130/88 with O2 saturation of 98 % on room air. His BNP was 1130 with troponin of 0.030. Creatinine was 1.35 with BUN 28 and total bilirubin of 2.8. His chest x-ray showed pulmonary vascular congestion. Left lower extremity Doppler was negative for DVT. He was started on vancomycin and received 1 dose of Lasix after blood cultures. PAST MEDICAL HISTORY: 1. Coronary artery disease, status post CABG. 2. Depression without any current suicidal ideation. 3. Chronic systolic and diastolic heart failure. 4. Chronic atrial fibrillation. 5. Hypertension. 6. Anxiety. PAST SURGICAL HISTORY: 1. Hernia repair. 2. Pacemaker placement. 3. Coronary artery bypass grafting. ALLERGIES: No known drug allergies. CURRENT HOME MEDICATIONS: The patient has not been taking his medications recently. He is unable to recall all of his medications. SOCIAL HISTORY: Patient currently lives at home alone. He is . He denies any tobacco, alcohol, or drug use. He is independent of activities of daily living. FAMILY HISTORY: Negative for heart disease. REVIEW OF SYSTEMS: The following complete review of systems was negative, unless otherwise mentioned in the HPI or below: Constitutional: Weight loss or gain, ability to conduct usual activities. Skin: Rash, itching. Eyes: Double vision, pain. ENT/Mouth: Nose bleeding, neck stiffness, pain, tenderness. Cardiovascular: Palpitations, dyspnea on exertion, orthopnea. Respiratory: Shortness of breath, wheezing, cough, hemoptysis, fever or night sweats. Gastrointestinal: Poor appetite, abdominal pain, heartburn, nausea, vomiting, constipation, or diarrhea. Genitourinary: Urgency, frequency, dysuria, nocturia. Musculoskeletal: Pain, swelling. Neurologic/Psychiatric: Anxiety, depression. Allergy/Immunologic: Skin rash, bleeding tendency. PHYSICAL EXAMINATION: VITAL SIGNS: As discussed above. GENERAL: An 82-year-old male in [id number] respiratory distress. Audible wheezing heard. He is able to complete short phrases. HEENT: Head atraumatic, normocephalic. Sclerae are anicteric. Moist mucous membranes. No oral lesion. NECK: Supple. JVD elevated. No carotid bruit. LUNGS: Showed expiratory wheezing and scattered rhonchi. There were bibasilar rales. There was accessory muscle use. HEART: S1, S2 present. Regular rate and rhythm. No rubs or gallops appreciated. Healed midline scar from previous CABG. ABDOMEN: Soft, nontender, bowel sounds present. No rebound, guarding, or costovertebral angle tenderness. EXTREMITIES: Bilateral lower extremity swelling with erythema mainly over the left lower extremity. There was a wound over the posterior ankle approximately less than 2 cm without any purulent drainage. The skin was warm on palpation mainly in the left lower extremities. SKIN: As above. NEUROLOGY: Grossly nonfocal. Moves all four extremities. PSYCHIATRY: Alert, awake, oriented x3. PERIPHERAL VASCULAR: Radial pulses palpable bilaterally. MUSCULOSKELETAL: No joint swelling or tenderness. LYMPH NODES: No palpable lymph nodes in the neck. LABORATORY AND DIAGNOSTIC FINDINGS: As discussed above; 1. WBC was 4.2 with platelet count of 113, hemoglobin 17. 2. INR 1.4. 3. Creatinine last year in February was 1.01 4. Chest x-ray by my review showed pulmonary vascular congestion. EKG by my review showed paced rhythm. IMPRESSION: 1. Acute on chronic systolic and diastolic heart failure exacerbation secondary to medication noncompliance. 2. Left lower extremity cellulitis. 3. Chronic atrial fibrillation, on anticoagulation. INR subtherapeutic. Probably secondary to medication noncompliance. 4. Coronary artery disease, status post coronary artery bypass graft. 5. Anxiety, depression without any suicidal ideation. 6. Abnormal LFTS due to passive hepatic congestion. 7. Hypertension. 8. Acute kidney injury on chronic kidney disease stage 2, probably secondary to cardiorenal syndrome. 9. Chronic thrombocytopenia. 10. Leukopenia. Probably chronic. His WBC count was 4.6 in June. PLAN: The patient will be monitored on the telemetry unit. We will continue diuretics. Labs will be monitored on a daily basis. We will continue antibiotics for cellulitis. We will consult Wound Care. Heart failure counseling. We will try to arrange for home health care for discharge. Fluid restriction. Vital signs q.4 hourly. We will also check folic acid and vitamin B12 due to macrocytosis. Plan of care was discussed with the patient in detail, he stated understanding. [facility]
[2017-08-21] MEDS: cefTRIAXone\\ROCEPHIN 1 GM in Sterile Water 10 ML IVPB SCH (02:58)
[2017-08-21] MEDS: Furosemide 40 MG/4 ML VIAL SLOW IVP SCH ×2 (05:43→13:23)
[2017-08-21 06:02] LABS: #Lymphocytes 0.5 thou/uL (1.20-3.40); #Monocytes 0.4 thou/uL (0.11-0.59); #Neutrophils 2.8 thou/uL (1.40-6.50); %Eosinophils 0.6 % (0.0-10.0); %Lymphocytes 13.9 % (21.0-51.0); %Monocytes 10.1 % (0.0-10.0); %Neutrophils 75.4 % (42.0-75.0); Hemoglobin 14.4 g/dL (14.0-18.0); Mean Corpuscular Hemoglobin 33.9 pg (27.0-31.0); Mean Platelet Volume 8.5 fL (7.4-10.4); Platelet Count 102 thou/uL (130-400); Red Blood Cell (RBC) Count 4.26 mill/uL (4.70-6.10); White Blood Cell (WBC) Count 3.7 thou/uL (4.8-10.8)
[2017-08-21 06:09] LABS: ALT (SGPT) 16 U/L (8-55); AST (SGOT) 31 U/L (5-34); Albumin 3.4 g/dL (3.4-4.8); Alkaline Phosphatase 96 U/L (40-150); Anion Gap 14 mmol/L (10-20); BUN (Urea Nitrogen) 26 mg/dL (8.4-25.7); Calc. Creatinine Clearance 53 mL/min (70-130); Calcium 9.2 mg/dL (7.8-10.44); Carbon Dioxide 21 mmol/L (23-31); Chloride 110 mmol/L (98-107); Estimated GFR-MDRD 56; Globulin 2.5 g/dL (2.4-3.5); Glucose 89 mg/dL (83-110); Protein, Total 5.9 g/dL (5.8-8.1); Sodium 141 mmol/L (136-145)
[2017-08-21 06:39] LABS: Folate (Folic Acid) 3.7 ng/mL (7.0-31.4)
[2017-08-21 08:31] LABS: INR-International Normal Ratio 1.6; Prothrombin Time 19.7 SEC (12.0-14.7)
[2017-08-21] MEDS ORDERED: Non-Formulary Item 1 EACH (Potassium Chloride [Potassium Chloride] 10 MEQ) PO SCH (09:00)
[2017-08-21 09:48] LABS: CKMB 15.8 ng/mL (0-6.6); Troponin I 4.065 ng/mL (< 0.028)
[2017-08-21] MEDS: Potassium Chloride 20 MEQ TAB PO SCH ×2 (09:58→18:25)
[2017-08-21] MEDS: Famotidine 20 MG TAB PO SCH (09:58)
[2017-08-21] MEDS: Carvedilol 6.25 MG TAB PO SCH ×2 (09:58→21:26)
[2017-08-21] MEDS: Lisinopril 20 MG TAB PO SCH (09:58)
[2017-08-21] MEDS: Aspirin 81 mg Enteric Coated Tablet PO SCH (09:59)
[2017-08-21] MEDS: Escitalopram Oxalate 10 mg Tablet PO SCH (09:59)
[2017-08-21] MEDS: Docusate 100 MG CAP PO SCH ×2 (09:59→21:26)
[2017-08-21] MEDS ORDERED: Enoxaparin Sodium 80 MG/0.8 ML SYRINGE SC SCH (10:00)
[2017-08-21] MEDS: Enoxaparin Sodium 80 MG/0.8 ML SYRINGE SC SCH ×3 (13:20→21:25)
[2017-08-21 13:51] LABS: Troponin I 4.365 ng/mL (< 0.028)
--- NOTE | 2017-08-21 13:57 | PDOC.PN ---
- Subjective Encounter Start Date: 08/21/17 Encounter Start Time: 09:00 Subjective: pt up in bed no complains of chest pain or sob. - Objective Resuscitation Status: Resuscitation Status FULL:Full Resuscitation Vital Signs & Weight: Vital Signs (12 hours) Temp Pulse Resp BP Pulse Ox 08/21/17 13:15 97.4 F L 70 14 117/74 98 08/21/17 09:51 97.6 F 70 14 114/67 99 08/21/17 04:00 97.3 F L 75 16 132/60 92 L Weight Weight 185 lb 4.8 oz I&O: 08/20/17 08/21/17 08/22/17 06:59 06:59 06:59 Intake Total 400 Output Total 1000 Balance -600 Result Diagrams: 08/21/17 05:36 08/21/17 05:36 Phys Exam - Physical Examination HEENT: PERRLA, moist MMs, sclera anicteric, TM's clear, oral pharynx no lesions , 2+ tonsils Neck: no nodes, no JVD, supple, full ROM Respiratory: no wheezing, no rales, no rhonchi, wheezing present, clear to auscultation bilateral Cardiovascular: RRR, no significant murmur, no rub, gallop, irregular mid sternum scar Gastrointestinal: soft, non-tender, no distention, positive bowel sounds left leg has erythema and has a small purlent drainage Neurological: non-focal, normal sensation, moves all 4 limbs Dx/Plan - Plan 1) left leg cellulitis 2) elevated trop 3) CKD 4) CAD s/p CABG 5) acute on chronic diastolic heart failure plan: pt does have a small spot with purulent drainage. will continue vanco and ceftriaxone. We do not have Teflaro which would also cover MRSA. Pt did have significant elevated trops of 4.0 EKG indicated paced rhythm and pt has no chest pain. Did call cardiology about concerns for significant elevated trops from 0.1 to 4.0. Recommended to trend trops and monitor. Pt is on Coumadin but is subtheraputic. will add lovonox and once INR is therapeutic will discontinue lovonox. Pt is on asa/statin and lovonox. will follow closely. * . Review of Systems - Review of Systems Eyes: negative: Pain, Vision Change, Conjunctivae Inflammation, Eyelid Inflammation, Redness, Other ENT: negative: Ear Pain, Ear Discharge, Nose Pain, Nose Discharge, Nose Congestion, Mouth Pain, Mouth Swelling, Throat Pain, Throat Swelling, Other Respiratory: negative: Cough, Dry, Shortness of Breath, Hemoptysis, SOB with Excertion, Pleuritic Pain, Sputum, Wheezing Cardiovascular: negative: chest pain, palpitations, orthopnea, paroxysmal nocturnal dyspnea, edema, light headedness, other Gastrointestinal: negative: Nausea, Vomiting, Abdominal Pain, Diarrhea, Constipation, Melena, Hematochezia, Other Genitourinary: negative: Dysuria, Frequency, Incontinence, Hematuria, Retention , Other - Medications/Allergies Allergies/Adverse Reactions: Allergies Allergy/AdvReac Type Severity Reaction Status Date / Time No Known Allergies Allergy Verified 08/08/14 20:05 Medications: Current Medications Acetaminophen (Tylenol) 650 mg PO Q4H PRN PRN Reason: Headache/Fever or Pain Aspirin (Ecotrin) 81 mg PO DAILY [facility] Last Admin: 08/21/17 09:59 Dose: 81 mg Atorvastatin Calcium (Lipitor) 40 mg PO HS [facility] Calcium Carbonate (Tums) 1,000 mg PO Q4H PRN PRN Reason: Heartburn or Indigestion Carvedilol (Coreg) 6.25 mg PO BID [facility] Last Admin: 08/21/17 09:58 Dose: 6.25 mg Docusate Sodium (Colace) 100 mg PO BID [facility] Last Admin: 08/21/17 09:59 Dose: 100 mg Enoxaparin Sodium (Lovenox) 80 mg SC 0900,2100 [facility] Escitalopram Oxalate (Lexapro) 10 mg PO DAILY [facility] Last Admin: 08/21/17 09:59 Dose: 10 mg Famotidine (Pepcid) 20 mg PO DAILY [facility] Last Admin: 08/21/17 09:58 Dose: 20 mg Furosemide (Lasix) 40 mg SLOW IVP 0600,1400 [facility] Last Admin: 08/21/17 13:23 Dose: 40 mg Ceftriaxone Sodium 1 gm/ (Sterile Water) 10 mls @ 20 mls/hr IVPB Q24HR [facility] Last Admin: 08/21/17 02:58 Dose: 10 mls Vancomycin HCl 1.5 gm/ Sodium (Chloride) 300 mls @ 200 mls/hr IVPB Q24HR [facility] Latanoprost (Xalatan 0.005% Ophth Soln) 1 drop EA EYE HS [facility] Lisinopril (Zestril) 20 mg PO DAILY [facility] Last Admin: 08/21/17 09:58 Dose: 20 mg Miscellaneous Medication (Pharmacy To Dose) 1 each PO .WARFARIN NOHEMY Miscellaneous Medication (Pharmacy To Dose) 1 each IVPB PRN PRN PRN Reason: Pharmacy to dose Nitroglycerin (Nitrostat) 0.4 mg PO Q5MIN PRN PRN Reason: Chest Pain Potassium Chloride (K-Dur) 20 meq PO BID-WM [facility] Last Admin: 08/21/17 09:58 Dose: 20 meq Senna (Senokot) 2 tab PO HSPRN PRN PRN Reason: Constipation Sodium Chloride (Flush - Normal Saline) 10 ml IVF Q12HR [facility] Last Admin: 08/21/17 09:59 Dose: 10 ml Sodium Chloride (Flush - Normal Saline) 10 ml IVF PRN PRN PRN Reason: Saline Flush Last Admin: 08/21/17 13:24 Dose: 10 ml Warfarin Sodium (Coumadin) 5 mg PO 1700 NOHEMY Warfarin Sodium (Coumadin) 1.5 mg PO 1700 [facility]
[2017-08-21 14:31] VITALS: BMI 25.1
[2017-08-21 14:37] LABS: Hemoglobin A1c 5.4 % (4.0-6.0)
[2017-08-21 17:41] LABS: Critical Call Chem Troponin I RESULT DECREASING; Troponin I 3.612 ng/mL (< 0.028)
[2017-08-21] MEDS: Warfarin Sodium 5 MG TAB PO SCH (18:25)
[2017-08-21] MEDS: Warfarin Sodium 1.5 MG TAB PO SCH (18:25)
[2017-08-21] MEDS ORDERED: Atorvastatin Calcium 40 MG TAB PO SCH (21:00)
[2017-08-21] MEDS ORDERED: BIMATOPROST TOP SCH (21:00)
--- NOTE | 2017-08-21 21:12 | CON ---
DATE OF CONSULT: 05/23/17 The patient is an 82-year-old gentleman who presented with cellulitis and was noted to have an elevated troponin level. The patient has a long history of coronary artery disease. He has previously undergone coronary bypass surgery nearly 10 years ago. He has also had placement of electronic pacemaker. The patient also has a history of chronic atrial fibrillation. The patient was in his usual state of health when he recently had an injury to his foot It became swollen and he was admitted for further evaluation. The patient during his hospitalization was noted to have elevated troponin level. The patient denies having any chest discomfort. He reports dyspnea on exertion. PAST MEDICAL HISTORY: 1. Atrial fibrillation. 2. Coronary artery disease. 3. Hypertension. 4. Anxiety. PAST SURGICAL HISTORY: Hernia surgery and coronary bypass surgery. SOCIAL HISTORY: Nonsmoker. He is a hardwood finisher. MEDICATIONS: The patient has not been taking any of his medications. PHYSICAL EXAMINATION: GENERAL: This is elderly gentleman in no acute distress. VITAL SIGNS: Blood pressure 117/74. NECK: Showed no jugular venous distention. LUNGS: Coarse breath sounds bilateral. HEART: Irregular rate and rhythm, normal S1. ABDOMEN: Nondistended. EXTREMITIES: This left leg was swollen and edematous and erythematous. LABORATORY DATA: Sodium 141, potassium 4.0, chloride 110, bicarbonate 21, BUN 26, creatinine is 1.24. His troponin was 4.365. INR is 1.6. His white blood cell count was 3.7, hemoglobin 14.4, hematocrit 45.0 and his platelets were 102. His telemetry monitoring revealed electronic atrial pacemaker. IMPRESSION: 1. Non-Q-wave myocardial infarction. 2. History of coronary artery disease. 3. History of coronary bypass surgery. 4. Hypertension. 5. History of pacemaker placement. 6. Cellulitis. This gentleman presents with a non-Q-wave myocardial infarction . He is noncompliant with medications. He has not been on any cardiac medications including aspirin for the past 2 weeks. The patient states he has a long history of depression and does like to take any of medication. From a cardiac standpoint with his noncompliance would treat the patient medically. I explained the life threatening consequences of not being compliant and the need to take his aspirin daily. The patient has been treated with aspirin and Lovenox. This patient's prognosis is guarded. We will follow this patient with you through his hospitalization. [facility]
[2017-08-21] MEDS: Latanoprost 0.005% Ophth Soln 2.5 ml Bottle EA EYE SCH (21:25)
[2017-08-21] MEDS: Atorvastatin Calcium 40 MG TAB PO SCH (21:26)
[2017-08-21] MEDS: Vancomycin HCl 1.5 GM in Sodium Chloride 0.9% 250 ML 300 ML IVPB SCH (21:27)
[2017-08-22] MEDS: cefTRIAXone\\ROCEPHIN 1 GM in Sterile Water 10 ML IVPB SCH (01:26)
[2017-08-22] MEDS: Furosemide 40 MG/4 ML VIAL SLOW IVP SCH ×2 (05:23→13:57)
[2017-08-22] MEDS: Aspirin 81 mg Enteric Coated Tablet PO SCH (08:35)
[2017-08-22] MEDS: Carvedilol 6.25 MG TAB PO SCH ×2 (08:35→21:20)
[2017-08-22] MEDS: Cyanocobalamin (Vitamin B-12) 1,000 MCG TAB PO SCH (08:35)
[2017-08-22] MEDS: Lisinopril 20 MG TAB PO SCH (08:36)
[2017-08-22] MEDS: Escitalopram Oxalate 10 mg Tablet PO SCH (08:36)
[2017-08-22] MEDS: Folic Acid 1 MG TAB PO SCH (08:36)
[2017-08-22] MEDS: Potassium Chloride 20 MEQ TAB PO SCH ×2 (08:36→18:15)
[2017-08-22] MEDS: Famotidine 20 MG TAB PO SCH (08:36)
[2017-08-22] MEDS: Docusate 100 MG CAP PO SCH ×2 (08:37→21:20)
[2017-08-22 08:39] LABS: INR-International Normal Ratio 1.6
[2017-08-22 08:48] LABS: ALT (SGPT) 16 U/L (8-55); AST (SGOT) 31 U/L (5-34); Albumin 3.2 g/dL (3.4-4.8); Alkaline Phosphatase 93 U/L (40-150); Anion Gap 14 mmol/L (10-20); BUN (Urea Nitrogen) 24 mg/dL (8.4-25.7); Calc. Creatinine Clearance 51 mL/min (70-130); Calcium 9.7 mg/dL (7.8-10.44); Carbon Dioxide 22 mmol/L (23-31); Chloride 108 mmol/L (98-107); Estimated GFR-MDRD 57; Globulin 2.7 g/dL (2.4-3.5); Glucose 61 mg/dL (83-110); Magnesium 1.8 mg/dL (1.6-2.6); Protein, Total 5.9 g/dL (5.8-8.1); Sodium 140 mmol/L (136-145)
[2017-08-22 09:20] LABS: #Lymphocytes 0.4 thou/uL (1.20-3.40); #Monocytes 0.3 thou/uL (0.11-0.59); %Basophils 1.4 % (0.0-1.0); %Eosinophils 0.8 % (0.0-10.0); %Lymphocytes 15.4 % (21.0-51.0); %Monocytes 9.3 % (0.0-10.0); %Neutrophils 73.2 % (42.0-75.0); Hemoglobin 15.1 g/dL (14.0-18.0); Mean Corpuscular HGB CONC 31.4 g/dL (32.0-36.0); Mean Corpuscular Hemoglobin 33.8 pg (27.0-31.0); Mean Platelet Volume 8.9 fL (7.4-10.4); Platelet Count 107 thou/uL (130-400); Red Blood Cell (RBC) Count 4.48 mill/uL (4.70-6.10); White Blood Cell (WBC) Count 2.7 thou/uL (4.8-10.8)
--- NOTE | 2017-08-22 12:40 | PDOC.PN ---
- Subjective Encounter Start Date: 08/22/17 Encounter Start Time: 08:15 -: old records requested/rev pt feels better, edema reducing, no fever Patient seen and examined. No new complaints. No overnight events - Objective Resuscitation Status: Resuscitation Status FULL:Full Resuscitation MAR Reviewed: Yes Vital Signs & Weight: Vital Signs (12 hours) Temp Pulse Resp BP BP Pulse Ox 08/22/17 11:13 97.3 F L 71 15 134/83 95 08/22/17 08:36 128/66 08/22/17 08:35 128/66 08/22/17 08:31 97.3 F L 71 15 128/86 98 08/22/17 04:00 97.2 F L 66 18 128/89 100 Weight Admit Weight 188 lb Weight 174 lb 6 oz I&O: 08/21/17 08/22/17 08/23/17 06:59 06:59 06:59 Intake Total 400 1070 Output Total 1000 1400 Balance -600 -330 Result Diagrams: 08/22/17 08:17 08/22/17 08:17 Radiology Reviewed by me: Yes EKG Reviewed by me: Yes Phys Exam - Physical Examination Constitutional: NAD HEENT: PERRLA, moist MMs, sclera anicteric Neck: no JVD, supple Respiratory: no wheezing, no rhonchi few basal rales Cardiovascular: RRR, no significant murmur, no rub Gastrointestinal: soft, non-tender, no distention, positive bowel sounds Musculoskeletal: pulses present, edema present left leg cellulitis improving Neurological: non-focal, normal sensation, moves all 4 limbs Psychiatric: normal affect, A&O x 3 Skin: no rash, normal turgor Dx/Plan (1) Acute on chronic combined systolic and diastolic CHF (congestive heart failure) Code(s): I50.43 - ACUTE ON CHRONIC COMBINED SYSTOLIC AND DIASTOLIC HRT FAIL Status: Acute (2) Cellulitis of left lower extremity Code(s): L03.116 - CELLULITIS OF LEFT LOWER LIMB Status: Acute (3) Leucopenia Code(s): D72.819 - DECREASED WHITE BLOOD CELL COUNT, UNSPECIFIED Status: Acute (4) NSTEMI (non-ST elevated myocardial infarction) Code(s): I21.4 - NON-ST ELEVATION (NSTEMI) MYOCARDIAL INFARCTION Status: Acute (5) Noncompliance with medication regimen Code(s): Z91.14 - PATIENT'S OTHER NONCOMPLIANCE WITH MEDICATION REGIMEN Status : Acute (6) Thrombocytopenia Code(s): D69.6 - THROMBOCYTOPENIA, UNSPECIFIED Status: Acute (7) Afib Code(s): I48.91 - UNSPECIFIED ATRIAL FIBRILLATION Status: Chronic Qualifiers: Atrial fibrillation type: paroxysmal Qualified Code(s): I48.0 - Paroxysmal atrial fibrillation (8) Anxiety and depression Code(s): F41.9 - ANXIETY DISORDER, UNSPECIFIED; F32.9 - MAJOR DEPRESSIVE DISORDER, SINGLE EPISODE, UNSPECIFIED Status: Chronic (9) CAD (coronary artery disease) Code(s): I25.10 - ATHSCL HEART DISEASE OF [place] CORONARY ARTERY W/O ANG PCTRS Status: Chronic Qualifiers: Coronary Disease-Associated Artery/Lesion type: bypass graft [place] vs. transplanted heart: [place] heart Associated angina: without angina Qualified Code(s): I25.810 - Atherosclerosis of coronary artery bypass graft(s) without angina pectoris (10) Chronic anticoagulation Code(s): Z79.01 - TELEVISION SERVICER (CURRENT) USE OF ANTICOAGULANTS Status: Chronic (11) Dyslipidemia Code(s): E78.5 - HYPERLIPIDEMIA, UNSPECIFIED Status: Chronic (12) Hypertension Code(s): I10 - ESSENTIAL (PRIMARY) HYPERTENSION Status: Chronic (13) Macrocytosis Code(s): D75.89 - OTHER SPECIFIED DISEASES OF BLOOD AND BLOOD-FORMING ORGANS Status: Chronic - Plan cont current plan of care, continue antibiotics * continue IV lasix, still not euvolemic * continue vancomycin and rocephin for cellulitis, improving * repeat labs tomorrow * medication reviewed as below * symptomatic treatment * counselled for medical compliance. * start folic acid and vitamin B12 * adjust cardiac medication * monitor INR Review of Systems - Review of Systems Constitutional: negative: fever, chills, sweats, weakness, malaise, other Eyes: negative: Pain, Vision Change, Conjunctivae Inflammation, Eyelid Inflammation, Redness, Other ENT: negative: Ear Pain, Ear Discharge, Nose Pain, Nose Discharge, Nose Congestion, Mouth Pain, Mouth Swelling, Throat Pain, Throat Swelling, Other Respiratory: SOB with Excertion. negative: Cough, Dry, Shortness of Breath, Hemoptysis, Pleuritic Pain, Sputum, Wheezing Cardiovascular: orthopnea, edema. negative: chest pain, palpitations, paroxysmal nocturnal dyspnea, light headedness, other Gastrointestinal: negative: Nausea, Vomiting, Abdominal Pain, Diarrhea, Constipation, Melena, Hematochezia, Other Genitourinary: negative: Dysuria, Frequency, Incontinence, Hematuria, Retention , Other Musculoskeletal: negative: Neck Pain, Shoulder Pain, Arm Pain, Back Pain, Hand Pain, Leg Pain, Foot Pain, Other Skin: negative: Rash, Lesions, Alexander, Bruising, Other - Medications/Allergies Allergies/Adverse Reactions: Allergies Allergy/AdvReac Type Severity Reaction Status Date / Time No Known Allergies Allergy Verified 08/08/14 20:05 Medications: Current Medications Acetaminophen (Tylenol) 650 mg PO Q4H PRN PRN Reason: Headache/Fever or Pain Aspirin (Ecotrin) 81 mg PO DAILY [facility] Last Admin: 08/22/17 08:35 Dose: 81 mg Atorvastatin Calcium (Lipitor) 40 mg PO HS [facility] Last Admin: 08/21/17 21:26 Dose: 40 mg Calcium Carbonate (Tums) 1,000 mg PO Q4H PRN PRN Reason: Heartburn or Indigestion Carvedilol (Coreg) 6.25 mg PO BID [facility] Last Admin: 08/22/17 08:35 Dose: 6.25 mg Cyanocobalamin (Vitamin B-12) 1,000 mcg PO DAILY [facility] Last Admin: 08/22/17 08:35 Dose: 1,000 mcg Docusate Sodium (Colace) 100 mg PO BID [facility] Last Admin: 08/22/17 08:37 Dose: 100 mg Enoxaparin Sodium (Lovenox) 80 mg SC 0900,2100 [facility] Last Admin: 08/21/17 21:25 Dose: 80 mg Escitalopram Oxalate (Lexapro) 10 mg PO DAILY [facility] Last Admin: 08/22/17 08:36 Dose: 10 mg Famotidine (Pepcid) 20 mg PO DAILY [facility] Last Admin: 08/22/17 08:36 Dose: 20 mg Folic Acid (Folvite) 1 mg PO DAILY [facility] Last Admin: 08/22/17 08:36 Dose: 1 mg Furosemide (Lasix) 40 mg SLOW IVP 0600,1400 [facility] Last Admin: 08/22/17 05:23 Dose: 40 mg Ceftriaxone Sodium 1 gm/ (Sterile Water) 10 mls @ 20 mls/hr IVPB Q24HR [facility] Last Admin: 08/22/17 01:26 Dose: 10 mls Vancomycin HCl 1.5 gm/ Sodium (Chloride) 300 mls @ 200 mls/hr IVPB Q24HR [facility] Last Admin: 08/21/17 21:27 Dose: 300 mls Latanoprost (Xalatan 0.005% Ophth Soln) 1 drop EA EYE HS [facility] Last Admin: 08/21/17 21:25 Dose: 1 drop Lisinopril (Zestril) 20 mg PO DAILY [facility] Last Admin: 08/22/17 08:36 Dose: 20 mg Miscellaneous Medication (Pharmacy To Dose) 1 each PO .WARFARIN [facility] Miscellaneous Medication (Pharmacy To Dose) 1 each IVPB PRN PRN PRN Reason: Pharmacy to dose Nitroglycerin (Nitrostat) 0.4 mg PO Q5MIN PRN PRN Reason: Chest Pain Potassium Chloride (K-Dur) 20 meq PO BID-WM [facility] Last Admin: 08/22/17 08:36 Dose: 20 meq Senna (Senokot) 2 tab PO HSPRN PRN PRN Reason: Constipation Sodium Chloride (Flush - Normal Saline) 10 ml IVF Q12HR [facility] Last Admin: 08/22/17 08:35 Dose: 10 ml Sodium Chloride (Flush - Normal Saline) 10 ml IVF PRN PRN PRN Reason: Saline Flush Last Admin: 08/21/17 13:24 Dose: 10 ml Warfarin Sodium (Coumadin) 5 mg PO 1700 [facility] Last Admin: 08/21/17 18:25 Dose: 5 mg Warfarin Sodium (Coumadin) 1.5 mg PO 1700 [facility] Last Admin: 08/21/17 18:25 Dose: 1.5 mg
[2017-08-22] MEDS: Enoxaparin Sodium 80 MG/0.8 ML SYRINGE SC SCH ×2 (13:57→21:20)
[2017-08-22] MEDS: Warfarin Sodium 1.5 MG TAB PO SCH (18:15)
[2017-08-22] MEDS: Warfarin Sodium 5 MG TAB PO SCH (18:15)
[2017-08-22] MEDS: Vancomycin HCl 1.5 GM in Sodium Chloride 0.9% 250 ML 300 ML IVPB SCH (21:19)
[2017-08-22] MEDS: Latanoprost 0.005% Ophth Soln 2.5 ml Bottle EA EYE SCH (21:19)
[2017-08-22] MEDS: Atorvastatin Calcium 40 MG TAB PO SCH (21:20)
[2017-08-22 21:34] LABS: Vancomycin, Trough 16.1 ug/mL
[2017-08-23] MEDS: cefTRIAXone\\ROCEPHIN 1 GM in Sterile Water 10 ML IVPB SCH (03:28)
[2017-08-23 05:52] LABS: INR-International Normal Ratio 1.5; Prothrombin Time 18.9 SEC (12.0-14.7)
[2017-08-23 06:07] LABS: ALT (SGPT) 13 U/L (8-55); AST (SGOT) 24 U/L (5-34); Albumin 3.3 g/dL (3.4-4.8); Alkaline Phosphatase 92 U/L (40-150); Anion Gap 15 mmol/L (10-20); BUN (Urea Nitrogen) 24 mg/dL (8.4-25.7); Bilirubin, Total 1.4 mg/dL (0.2-1.2); Calc. Creatinine Clearance 45 mL/min (70-130); Carbon Dioxide 24 mmol/L (23-31); Chloride 105 mmol/L (98-107); Estimated GFR-MDRD 50; Globulin 2.4 g/dL (2.4-3.5); Glucose 92 mg/dL (83-110); Magnesium 1.9 mg/dL (1.6-2.6); Potassium 3.6 mmol/L (3.5-5.1); Protein, Total 5.7 g/dL (5.8-8.1); Sodium 140 mmol/L (136-145)
[2017-08-23] MEDS: Furosemide 40 MG/4 ML VIAL SLOW IVP SCH (06:07)
[2017-08-23 06:08] LABS: #Lymphocytes 0.4 thou/uL (1.20-3.40); #Monocytes 0.4 thou/uL (0.11-0.59); #Neutrophils 2.7 thou/uL (1.40-6.50); %Eosinophils 0.8 % (0.0-10.0); %Lymphocytes 10.3 % (21.0-51.0); %Monocytes 10.7 % (0.0-10.0); %Neutrophils 78.1 % (42.0-75.0); Hemoglobin 15.1 g/dL (14.0-18.0); Mean Corpuscular Hemoglobin 34.3 pg (27.0-31.0); Mean Platelet Volume 9.6 fL (7.4-10.4); Platelet Count 112 thou/uL (130-400); RBC Distribution Width 14.2 % (11.5-14.5); Red Blood Cell (RBC) Count 4.41 mill/uL (4.70-6.10); White Blood Cell (WBC) Count 3.4 thou/uL (4.8-10.8)
[2017-08-23] MEDS: Carvedilol 6.25 MG TAB PO SCH ×2 (08:57→21:12)
[2017-08-23] MEDS: Cyanocobalamin (Vitamin B-12) 1,000 MCG TAB PO SCH (08:57)
[2017-08-23] MEDS: Folic Acid 1 MG TAB PO SCH (08:57)
[2017-08-23] MEDS: Famotidine 20 MG TAB PO SCH (08:57)
[2017-08-23] MEDS: Furosemide 40 MG TAB PO SCH ×2 (08:57→14:33)
[2017-08-23] MEDS: Escitalopram Oxalate 10 mg Tablet PO SCH (08:57)
[2017-08-23] MEDS: Aspirin 81 mg Enteric Coated Tablet PO SCH (08:58)
[2017-08-23] MEDS: Docusate 100 MG CAP PO SCH ×2 (08:58→21:12)
[2017-08-23] MEDS: Lisinopril 20 MG TAB PO SCH (08:58)
[2017-08-23] MEDS: Potassium Chloride 20 MEQ TAB PO SCH ×2 (08:58→16:26)
[2017-08-23] MEDS: Enoxaparin Sodium 80 MG/0.8 ML SYRINGE SC SCH ×2 (08:58→21:13)
--- NOTE | 2017-08-23 10:53 | PDOC.CTH ---
<Rosie Harper - Last Filed: 08/23/17 16:01> Cardiology Progress Note - Subjective Awake, lying in bed, no distress. Denies chest pain, shortness of breath. Describes pain to left leg. Wants to go home soon. - Objective Vital Signs Temp Pulse Resp BP Pulse Ox 08/23/17 08:55 96.9 F L 70 16 08/23/17 08:50 96.9 F L 70 16 136/82 98 08/23/17 04:00 97.5 F L 70 15 126/70 96 Admit Weight 188 lb Weight 170 lb 4.8 oz 08/22/17 08/23/17 08/24/17 06:59 06:59 06:59 Intake Total 1070 960 Output Total 1400 1800 Balance -330 -840 - Physical Examination General/Neuro: alert & oriented x3, NAD Neck: no JVD present (supple) Lungs: CTA, unlabored respirations Heart: RRR Abdomen: NT/ND, soft Extremities: + edema B (2+ edema to LLE, erythema/warm) - Telemetry Telemetry Rhythm: VPaced 70s, occ PVC - Labs Result Diagrams: 08/23/17 05:29 08/23/17 05:29 Troponin/CKMB CK-MB (CK-2) 15.8 ng/mL (0-6.6) H* 08/21/17 09:08 Troponin I 3.612 ng/mL (< 0.028) H* 08/21/17 16:57 - Assessment/Plan PLAN: 1.NSTEMI-no chest pain, max trop 4.3. Poor compliance with medications, treat medically. No chest pain. Reinforced importance of medication adherence at home. Lovenox 1mg/kg 2.Acute on Chronic Diastolic & Systolic CHF-appears euvolemic, PO furosemide. On ACEi, carvedilol 3.HTN-stable on current regimen, continue same. 4.CAD-history of CABG. On statin, ASA. 5.Hx of PM 6. LLE Cellutlitis-IV Vancomycin, improving. Managed by primary team. <Thai Lloyd - Last Filed: 08/23/17 16:15> Cardiology Progress Note - Objective Vital Signs Temp Pulse Pulse Pulse Resp BP BP 08/23/17 12:25 68 18 08/23/17 12:03 72 76 122/70 113/70 08/23/17 08:55 96.9 F L 70 16 08/23/17 08:50 96.9 F L 70 16 BP Pulse Ox Pulse Ox Pulse Ox 08/23/17 12:25 132/81 97 08/23/17 12:03 98 99 08/23/17 08:55 08/23/17 08:50 136/82 98 Admit Weight 188 lb Weight 170 lb 4.8 oz 08/22/17 08/23/17 08/24/17 06:59 06:59 06:59 Intake Total 1070 960 Output Total 1400 1800 Balance -330 -840 - Labs Result Diagrams: 08/23/17 05:29 08/23/17 05:29 Troponin/CKMB CK-MB (CK-2) 15.8 ng/mL (0-6.6) H* 08/21/17 09:08 Troponin I 3.612 ng/mL (< 0.028) H* 08/21/17 16:57 Attending Addendum - Attending Addendum Date/Time: 08/23/17 0595 I personally evaluated the patient and discussed the management with Rosie Harper NP. I agree with the History, Examination, Assessment and Plan documented above with any addition or exceptions noted below.
--- NOTE | 2017-08-23 11:35 | PDOC.PN ---
- Subjective Encounter Start Date: 08/23/17 Encounter Start Time: 07:40 Patient seen and examined. No new complaints. No overnight events he is on room air, edema improving - Objective Resuscitation Status: Resuscitation Status FULL:Full Resuscitation MAR Reviewed: Yes Vital Signs & Weight: Vital Signs (12 hours) Temp Pulse Resp BP Pulse Ox 08/23/17 08:55 96.9 F L 70 16 08/23/17 08:50 96.9 F L 70 16 136/82 98 08/23/17 04:00 97.5 F L 70 15 126/70 96 Weight Admit Weight 188 lb Weight 170 lb 4.8 oz I&O: 08/22/17 08/23/17 08/24/17 06:59 06:59 06:59 Intake Total 1070 960 Output Total 1400 1800 Balance -330 -840 Result Diagrams: 08/23/17 05:29 08/23/17 05:29 EKG Reviewed by me: Yes Phys Exam - Physical Examination Constitutional: NAD HEENT: PERRLA, moist MMs, sclera anicteric Neck: no JVD, supple Respiratory: no wheezing, no rales, no rhonchi Cardiovascular: RRR, no significant murmur, no rub Gastrointestinal: soft, non-tender, no distention, positive bowel sounds Musculoskeletal: pulses present, edema present Neurological: non-focal, normal sensation Psychiatric: normal affect, A&O x 3 Skin: no rash, normal turgor Dx/Plan (1) Acute on chronic combined systolic and diastolic CHF (congestive heart failure) Code(s): I50.43 - ACUTE ON CHRONIC COMBINED SYSTOLIC AND DIASTOLIC HRT FAIL Status: Acute (2) Cellulitis of left lower extremity Code(s): L03.116 - CELLULITIS OF LEFT LOWER LIMB Status: Acute (3) Leucopenia Code(s): D72.819 - DECREASED WHITE BLOOD CELL COUNT, UNSPECIFIED Status: Acute (4) NSTEMI (non-ST elevated myocardial infarction) Code(s): I21.4 - NON-ST ELEVATION (NSTEMI) MYOCARDIAL INFARCTION Status: Acute (5) Noncompliance with medication regimen Code(s): Z91.14 - PATIENT'S OTHER NONCOMPLIANCE WITH MEDICATION REGIMEN Status : Acute (6) Thrombocytopenia Code(s): D69.6 - THROMBOCYTOPENIA, UNSPECIFIED Status: Acute (7) Afib Code(s): I48.91 - UNSPECIFIED ATRIAL FIBRILLATION Status: Chronic Qualifiers: Atrial fibrillation type: paroxysmal Qualified Code(s): I48.0 - Paroxysmal atrial fibrillation (8) Anxiety and depression Code(s): F41.9 - ANXIETY DISORDER, UNSPECIFIED; F32.9 - MAJOR DEPRESSIVE DISORDER, SINGLE EPISODE, UNSPECIFIED Status: Chronic (9) CAD (coronary artery disease) Code(s): I25.10 - ATHSCL HEART DISEASE OF [place] CORONARY ARTERY W/O ANG PCTRS Status: Chronic Qualifiers: Coronary Disease-Associated Artery/Lesion type: bypass graft [place] vs. transplanted heart: [place] heart Associated angina: without angina Qualified Code(s): I25.810 - Atherosclerosis of coronary artery bypass graft(s) without angina pectoris (10) Chronic anticoagulation Code(s): Z79.01 - ASSISTED (CURRENT) USE OF ANTICOAGULANTS Status: Chronic (11) Dyslipidemia Code(s): E78.5 - HYPERLIPIDEMIA, UNSPECIFIED Status: Chronic (12) Hypertension Code(s): I10 - ESSENTIAL (PRIMARY) HYPERTENSION Status: Chronic (13) Macrocytosis Code(s): D75.89 - OTHER SPECIFIED DISEASES OF BLOOD AND BLOOD-FORMING ORGANS Status: Chronic (14) Folate deficiency Code(s): E53.8 - DEFICIENCY OF OTHER SPECIFIED B GROUP VITAMINS Status: Acute - Plan cont current plan of care, continue antibiotics * now creatinine is going up, will change to lasix PO * continue vancomycin and rocephin for cellulitis * on discharge keflex and doxy * medication reviewed as below * symptomatic treatment. Review of Systems - Review of Systems ENT: negative: Ear Pain, Ear Discharge, Nose Pain, Nose Discharge, Nose Congestion, Mouth Pain, Mouth Swelling, Throat Pain, Throat Swelling, Other Respiratory: negative: Cough, Dry, Shortness of Breath, Hemoptysis, SOB with Excertion, Pleuritic Pain, Sputum, Wheezing Cardiovascular: negative: chest pain, palpitations, orthopnea, paroxysmal nocturnal dyspnea, edema, light headedness, other Gastrointestinal: negative: Nausea, Vomiting, Abdominal Pain, Diarrhea, Constipation, Melena, Hematochezia, Other Genitourinary: negative: Dysuria, Frequency, Incontinence, Hematuria, Retention , Other Musculoskeletal: negative: Neck Pain, Shoulder Pain, Arm Pain, Back Pain, Hand Pain, Leg Pain, Foot Pain, Other Skin: negative: Rash, Lesions, Alexander, Bruising, Other - Medications/Allergies Allergies/Adverse Reactions: Allergies Allergy/AdvReac Type Severity Reaction Status Date / Time No Known Allergies Allergy Verified 08/08/14 20:05 Medications: Current Medications Acetaminophen (Tylenol) 650 mg PO Q4H PRN PRN Reason: Headache/Fever or Pain Aspirin (Ecotrin) 81 mg PO DAILY [facility] Last Admin: 08/23/17 08:58 Dose: 81 mg Atorvastatin Calcium (Lipitor) 40 mg PO HS [facility] Last Admin: 08/22/17 21:20 Dose: 40 mg Calcium Carbonate (Tums) 1,000 mg PO Q4H PRN PRN Reason: Heartburn or Indigestion Carvedilol (Coreg) 6.25 mg PO BID [facility] Last Admin: 08/23/17 08:57 Dose: 6.25 mg Cyanocobalamin (Vitamin B-12) 1,000 mcg PO DAILY [facility] Last Admin: 08/23/17 08:57 Dose: 1,000 mcg Docusate Sodium (Colace) 100 mg PO BID [facility] Last Admin: 08/23/17 08:58 Dose: 100 mg Enoxaparin Sodium (Lovenox) 80 mg SC 0900,2100 [facility] Last Admin: 08/23/17 08:58 Dose: 80 mg Escitalopram Oxalate (Lexapro) 10 mg PO DAILY [facility] Last Admin: 08/23/17 08:57 Dose: 10 mg Famotidine (Pepcid) 20 mg PO DAILY [facility] Last Admin: 08/23/17 08:57 Dose: 20 mg Folic Acid (Folvite) 1 mg PO DAILY [facility] Last Admin: 08/23/17 08:57 Dose: 1 mg Furosemide (Lasix) 40 mg PO 0900,1400 [facility] Last Admin: 08/23/17 08:57 Dose: 40 mg Ceftriaxone Sodium 1 gm/ (Sterile Water) 10 mls @ 20 mls/hr IVPB Q24HR [facility] Last Admin: 08/23/17 03:28 Dose: 10 mls Vancomycin HCl 1.5 gm/ Sodium (Chloride) 300 mls @ 200 mls/hr IVPB Q24HR [facility] Last Admin: 08/22/17 21:19 Dose: 300 mls Latanoprost (Xalatan 0.005% Ophth Soln) 1 drop EA EYE HS [facility] Last Admin: 08/22/17 21:19 Dose: Not Given Lisinopril (Zestril) 20 mg PO DAILY [facility] Last Admin: 08/23/17 08:58 Dose: 20 mg Miscellaneous Medication (Pharmacy To Dose) 1 each PO .WARFARIN [facility] Miscellaneous Medication (Pharmacy To Dose) 1 each IVPB PRN PRN PRN Reason: Pharmacy to dose Nitroglycerin (Nitrostat) 0.4 mg PO Q5MIN PRN PRN Reason: Chest Pain Potassium Chloride (K-Dur) 20 meq PO BID-WM [facility] Last Admin: 08/23/17 08:58 Dose: 20 meq Senna (Senokot) 2 tab PO HSPRN PRN PRN Reason: Constipation Sodium Chloride (Flush - Normal Saline) 10 ml IVF Q12HR [facility] Last Admin: 08/23/17 08:58 Dose: 10 ml Sodium Chloride (Flush - Normal Saline) 10 ml IVF PRN PRN PRN Reason: Saline Flush Last Admin: 08/22/17 13:57 Dose: 10 ml Warfarin Sodium (Coumadin) 7.5 mg PO 1700 [facility]
[2017-08-23] MEDS ORDERED: Warfarin Sodium 7.5 MG TAB PO SCH (17:00)
[2017-08-23] MEDS: Vancomycin HCl 1.5 GM in Sodium Chloride 0.9% 250 ML 300 ML IVPB SCH (21:09)
[2017-08-23] MEDS: Atorvastatin Calcium 40 MG TAB PO SCH (21:13)
[2017-08-23] MEDS: Latanoprost 0.005% Ophth Soln 2.5 ml Bottle EA EYE SCH (23:02)
[2017-08-24] MEDS: cefTRIAXone\\ROCEPHIN 1 GM in Sterile Water 10 ML IVPB SCH (02:24)
[2017-08-24 05:50] LABS: ALT (SGPT) 15 U/L (8-55); AST (SGOT) 21 U/L (5-34); Albumin 3.2 g/dL (3.4-4.8); Alkaline Phosphatase 84 U/L (40-150); Anion Gap 12 mmol/L (10-20); BUN (Urea Nitrogen) 23 mg/dL (8.4-25.7); Bilirubin, Total 1.3 mg/dL (0.2-1.2); Calc. Creatinine Clearance 42 mL/min (70-130); Calcium 9.3 mg/dL (7.8-10.44); Carbon Dioxide 29 mmol/L (23-31); Chloride 104 mmol/L (98-107); Estimated GFR-MDRD 47; Globulin 2.3 g/dL (2.4-3.5); Glucose 76 mg/dL (83-110); Potassium 3.5 mmol/L (3.5-5.1); Protein, Total 5.5 g/dL (5.8-8.1); Sodium 141 mmol/L (136-145)
[2017-08-24] MEDS: Lisinopril 20 MG TAB PO SCH (08:33)
[2017-08-24] MEDS: Aspirin 81 mg Enteric Coated Tablet PO SCH (08:34)
[2017-08-24] MEDS: Furosemide 40 MG TAB PO SCH (08:34)
[2017-08-24] MEDS: Escitalopram Oxalate 10 mg Tablet PO SCH (08:34)
[2017-08-24] MEDS: Famotidine 20 MG TAB PO SCH (08:34)
[2017-08-24] MEDS: Carvedilol 6.25 MG TAB PO SCH (08:34)
[2017-08-24] MEDS: Potassium Chloride 20 MEQ TAB PO SCH (08:34)
[2017-08-24] MEDS: Folic Acid 1 MG TAB PO SCH (08:34)
[2017-08-24] MEDS: Cyanocobalamin (Vitamin B-12) 1,000 MCG TAB PO SCH (08:34)
[2017-08-24] MEDS: Docusate 100 MG CAP PO SCH (08:34)
[2017-08-24] MEDS: Enoxaparin Sodium 80 MG/0.8 ML SYRINGE SC SCH (08:35)
[2017-08-24 08:43] VITALS: BP 143/98; TEMP 97.5
--- NOTE | 2017-08-24 08:48 | EKG ---
Test Reason : Blood Pressure : / mmHG Vent. Rate : 076 BPM Atrial Rate : 079 BPM P-R Int : 000 ms QRS Dur : 166 ms QT Int : 540 ms P-R-T Axes : 000 243 088 degrees QTc Int : 607 ms Electronic ventricular pacemaker When compared with ECG of 20-AUG-2017 20:49, (Unconfirmed) Previous ECG has undetermined rhythm, needs review Confirmed by LANE SANTOS, VIOLETA ([id number]) on 08/24/2017 8:48:03 AM Referred By: STACIE Confirmed By:VIOLETA SHERMAN MD
--- NOTE | 2017-08-24 10:14 | PDOC.PN ---
- Subjective Encounter Start Date: 08/24/17 Encounter Start Time: 07:40 Patient seen and examined. No new complaints. No overnight events - Objective Resuscitation Status: Resuscitation Status FULL:Full Resuscitation MAR Reviewed: Yes Vital Signs & Weight: Vital Signs (12 hours) Temp Pulse Resp BP BP Pulse Ox 08/24/17 08:30 97.5 F L 72 18 143/98 H 98 08/24/17 04:00 98.2 F 74 20 135/79 96 08/24/17 00:28 96 Weight Admit Weight 188 lb Weight 168 lb 1.6 oz I&O: 08/23/17 08/24/17 08/25/17 06:59 06:59 06:59 Intake Total 960 850 Output Total 1800 1575 Balance -840 -725 Result Diagrams: 08/23/17 05:29 08/24/17 04:58 EKG Reviewed by me: Yes Phys Exam - Physical Examination Constitutional: NAD HEENT: PERRLA, moist MMs, sclera anicteric Neck: no JVD, supple Respiratory: no wheezing, no rales, no rhonchi Cardiovascular: RRR, no significant murmur, no rub Gastrointestinal: soft, non-tender, no distention, positive bowel sounds Musculoskeletal: pulses present, edema present Neurological: non-focal, normal sensation, moves all 4 limbs Psychiatric: normal affect, A&O x 3 Skin: no rash, normal turgor Dx/Plan (1) Acute on chronic combined systolic and diastolic CHF (congestive heart failure) Code(s): I50.43 - ACUTE ON CHRONIC COMBINED SYSTOLIC AND DIASTOLIC HRT FAIL Status: Acute (2) Cellulitis of left lower extremity Code(s): L03.116 - CELLULITIS OF LEFT LOWER LIMB Status: Acute (3) Leucopenia Code(s): D72.819 - DECREASED WHITE BLOOD CELL COUNT, UNSPECIFIED Status: Acute (4) NSTEMI (non-ST elevated myocardial infarction) Code(s): I21.4 - NON-ST ELEVATION (NSTEMI) MYOCARDIAL INFARCTION Status: Acute (5) Noncompliance with medication regimen Code(s): Z91.14 - PATIENT'S OTHER NONCOMPLIANCE WITH MEDICATION REGIMEN Status : Acute (6) Thrombocytopenia Code(s): D69.6 - THROMBOCYTOPENIA, UNSPECIFIED Status: Acute (7) Afib Code(s): I48.91 - UNSPECIFIED ATRIAL FIBRILLATION Status: Chronic Qualifiers: Atrial fibrillation type: paroxysmal Qualified Code(s): I48.0 - Paroxysmal atrial fibrillation (8) Anxiety and depression Code(s): F41.9 - ANXIETY DISORDER, UNSPECIFIED; F32.9 - MAJOR DEPRESSIVE DISORDER, SINGLE EPISODE, UNSPECIFIED Status: Chronic (9) CAD (coronary artery disease) Code(s): I25.10 - ATHSCL HEART DISEASE OF [place] CORONARY ARTERY W/O ANG PCTRS Status: Chronic Qualifiers: Coronary Disease-Associated Artery/Lesion type: bypass graft [place] vs. transplanted heart: [place] heart Associated angina: without angina Qualified Code(s): I25.810 - Atherosclerosis of coronary artery bypass graft(s) without angina pectoris (10) Chronic anticoagulation Code(s): Z79.01 - FPC (CURRENT) USE OF ANTICOAGULANTS Status: Chronic (11) Dyslipidemia Code(s): E78.5 - HYPERLIPIDEMIA, UNSPECIFIED Status: Chronic (12) Hypertension Code(s): I10 - ESSENTIAL (PRIMARY) HYPERTENSION Status: Chronic (13) Macrocytosis Code(s): D75.89 - OTHER SPECIFIED DISEASES OF BLOOD AND BLOOD-FORMING ORGANS Status: Chronic (14) Folate deficiency Code(s): E53.8 - DEFICIENCY OF OTHER SPECIFIED B GROUP VITAMINS Status: Acute - Plan cont current plan of care, continue antibiotics * medication reviewed as below * symptomatic treatment * stable for discharge * follow up with PCP with BMP in 1 week * heart failure clinic follow up advised. Review of Systems - Review of Systems Eyes: negative: Pain, Vision Change, Conjunctivae Inflammation, Eyelid Inflammation, Redness, Other ENT: negative: Ear Pain, Ear Discharge, Nose Pain, Nose Discharge, Nose Congestion, Mouth Pain, Mouth Swelling, Throat Pain, Throat Swelling, Other Respiratory: negative: Cough, Dry, Shortness of Breath, Hemoptysis, SOB with Excertion, Pleuritic Pain, Sputum, Wheezing Cardiovascular: negative: chest pain, palpitations, orthopnea, paroxysmal nocturnal dyspnea, edema, light headedness, other Gastrointestinal: negative: Nausea, Vomiting, Abdominal Pain, Diarrhea, Constipation, Melena, Hematochezia, Other Genitourinary: negative: Dysuria, Frequency, Incontinence, Hematuria, Retention , Other Musculoskeletal: negative: Neck Pain, Shoulder Pain, Arm Pain, Back Pain, Hand Pain, Leg Pain, Foot Pain, Other Skin: negative: Rash, Lesions, Alexander, Bruising, Other - Medications/Allergies Allergies/Adverse Reactions: Allergies Allergy/AdvReac Type Severity Reaction Status Date / Time No Known Allergies Allergy Verified 08/08/14 20:05 Medications: Current Medications Acetaminophen (Tylenol) 650 mg PO Q4H PRN PRN Reason: Headache/Fever or Pain Aspirin (Ecotrin) 81 mg PO DAILY [facility] Last Admin: 08/24/17 08:34 Dose: 81 mg Atorvastatin Calcium (Lipitor) 40 mg PO HS [facility] Last Admin: 08/23/17 21:13 Dose: 40 mg Calcium Carbonate (Tums) 1,000 mg PO Q4H PRN PRN Reason: Heartburn or Indigestion Carvedilol (Coreg) 6.25 mg PO BID [facility] Last Admin: 08/24/17 08:34 Dose: 6.25 mg Cyanocobalamin (Vitamin B-12) 1,000 mcg PO DAILY [facility] Last Admin: 08/24/17 08:34 Dose: 1,000 mcg Docusate Sodium (Colace) 100 mg PO BID [facility] Last Admin: 08/24/17 08:34 Dose: 100 mg Enoxaparin Sodium (Lovenox) 80 mg SC 0900,2100 [facility] Last Admin: 08/24/17 08:35 Dose: 80 mg Escitalopram Oxalate (Lexapro) 10 mg PO DAILY [facility] Last Admin: 08/24/17 08:34 Dose: 10 mg Famotidine (Pepcid) 20 mg PO DAILY [facility] Last Admin: 08/24/17 08:34 Dose: 20 mg Folic Acid (Folvite) 1 mg PO DAILY [facility] Last Admin: 08/24/17 08:34 Dose: 1 mg Furosemide (Lasix) 40 mg PO 0900,1400 [facility] Last Admin: 08/24/17 08:34 Dose: 40 mg Ceftriaxone Sodium 1 gm/ (Sterile Water) 10 mls @ 20 mls/hr IVPB Q24HR [facility] Last Admin: 08/24/17 02:24 Dose: 10 mls Vancomycin HCl 1.5 gm/ Sodium (Chloride) 300 mls @ 200 mls/hr IVPB Q24HR [facility] Last Admin: 08/23/17 21:09 Dose: 300 mls Latanoprost (Xalatan 0.005% Oph Soln) 1 drop EA EYE HS [facility] Last Admin: 08/23/17 23:02 Dose: Not Given Lisinopril (Zestril) 20 mg PO DAILY [facility] Last Admin: 08/24/17 08:33 Dose: 20 mg Miscellaneous Medication (Pharmacy To Dose) 1 each PO .WARFARIN [facility] Miscellaneous Medication (Pharmacy To Dose) 1 each IVPB PRN PRN PRN Reason: Pharmacy to dose Nitroglycerin (Nitrostat) 0.4 mg PO Q5MIN PRN PRN Reason: Chest Pain Potassium Chloride (K-Dur) 20 meq PO BID-WM [facility] Last Admin: 08/24/17 08:34 Dose: 20 meq Senna (Senokot) 2 tab PO HSPRN PRN PRN Reason: Constipation Sodium Chloride (Flush - Normal Saline) 10 ml IVF Q12HR [facility] Last Admin: 08/24/17 08:48 Dose: Not Given Sodium Chloride (Flush - Normal Saline) 10 ml IVF PRN PRN PRN Reason: Saline Flush Last Admin: 08/22/17 13:57 Dose: 10 ml Warfarin Sodium (Coumadin) 7.5 mg PO 1700 [facility] Last Admin: 08/23/17 16:26 Dose: 7.5 mg
--- NOTE | 2017-08-24 10:42 | PDOC.CTH ---
Cardiology Progress Note - Subjective Awake, getting out of bed to the shower. Denies acute complaints of chest pain , shortness of breath. Going home today. - Objective Vital Signs Temp Pulse Resp BP BP Pulse Ox 08/24/17 08:30 97.5 F L 72 18 143/98 H 98 08/24/17 04:00 98.2 F 74 20 135/79 96 08/24/17 00:28 96 Admit Weight 188 lb Weight 168 lb 1.6 oz 08/23/17 08/24/17 08/25/17 06:59 06:59 06:59 Intake Total 960 850 Output Total 1800 1575 Balance -840 -725 - Physical Examination General/Neuro: alert & oriented x3, NAD Neck: no JVD present Lungs: CTA, unlabored respirations Heart: RRR Abdomen: NT/ND, soft Extremities: other: - Telemetry Telemetry Rhythm: VPaced 70s, occ PVCs - Labs Result Diagrams: 08/23/17 05:29 08/24/17 04:58 Troponin/CKMB CK-MB (CK-2) 15.8 ng/mL (0-6.6) H* 08/21/17 09:08 Troponin I 3.612 ng/mL (< 0.028) H* 08/21/17 16:57 - Assessment/Plan 1.NSTEMI-no chest pain, max trop 4.3. Poor compliance with medications, treat medically. Denies chest pain. Reinforced importance of medication adherence at home. 2.Acute on Chronic Diastolic & Systolic CHF-appears euvolemic, PO furosemide. On ACEi, carvedilol 3.Chronic AFib-home on warfarin, rate controlled. 4.HTN-stable on current regimen, continue same. 5.CAD-history of CABG. On statin, ASA. 6.Hx of PM 7. LLE Cellutlitis-IV Vancomycin, improving. Managed by primary team. Home today.
--- NOTE | 2017-08-24 13:09 | DIS ---
DATE OF ADMISSION: 08/20/2017 DATE OF DISCHARGE: 08/24/2017 PRIMARY CARE PHYSICIAN: Dr. Vera Head. DISCHARGE DISPOSITION: Home with home health. PRIMARY DISCHARGE DIAGNOSES: 1. Acute on chronic systolic and diastolic congestive heart failure exacerbation. 2. Left lower extremity cellulitis. 3. Folate deficiency. 4. Leukopenia. 5. Non-ST elevation myocardial infarction due to demand ischemia. 6. Thrombocytopenia. 7. Noncompliance with medication regimen. SECONDARY DISCHARGE DIAGNOSES: 1. Macrocytosis due to folate deficiency. 2. Hypertension. 3. Dyslipidemia. 4. Chronic anticoagulation. 5. Coronary artery disease. 6. Anxiety and depression. 7. Paroxysmal atrial fibrillation. 8. Chronic systolic and diastolic heart failure. PRIMARY PROCEDURES AND OPERATIONS: None. RADIOLOGICAL INVESTIGATION: Chest x-ray showed findings suggestive of congestive heart failure. Ult rasound was negative for any DVT. SIGNIFICANT LABORATORY DATA: WBC 3.4, hemoglobin 15.1, platelet 112, MCV 107. INR 1.5. Sodium 141, potassium 3.5, BUN 23, creatinine 1.42, LFT normal, albumin 3.2, troponin 3.612. Blood culture nega tive. DISCHARGE MEDICATIONS: Aspirin 81 mg p.o. daily, Lipitor 40 mg p.o. at bedtime, bimatoprost ophthalm ic drop at bedtime, Coreg 6.25 mg p.o. b.i.d., Keflex 500 mg p.o. t.i.d. for 10 days, vitamin B12 100 0 mcg p.o. daily, Cardizem-CD 180 mg p.o. daily, doxycycline 100 mg p.o. twice daily for 10 days, Lorenzo apro 10 mg p.o. daily, Pepcid 20 mg p.o. daily, folic acid 1 mg p.o. daily, Lasix 40 mg p.o. b.i.d., latanoprost ophthalmic drops at bedtime, lisinopril 20 mg p.o. daily, potassium chloride 10 mEq p.o. daily, warfarin 7.5 mg p.o. daily. CONTRAINDICATIONS: None. CODE STATUS: FULL CODE. INPATIENT CONSULTANTS: Cardiology group was following while in hospital. TEST RESULTS PENDING ON DISCHARGE: None. ALLERGIES: No known drug allergy. DISCHARGE PLAN: Post hospital, the patient is discharged home with home health. Subsequently, brandyn henry will follow up with his yard cleaner, [facility] and primary care physician as arian gutierrez HOSPITAL COURSE: An 82-year-old male who was not taking his cardiac medication for his underlying CH F history and he was also having erythema and swelling of left lower extremity and that is why he cam e to emergency room for evaluation. In the emergency room, he was diagnosed with acute on chronic sy stolic and diastolic congestive heart failure exacerbation along with the left lower extremity cellul itis. Ultrasound of left lower extremity was negative for any DVT. Patient's chest x-ray was suppor tive of CHF. Patient was having significant volume overload status. While in hospital, the patient was treated with IV Lasix. Upon discharge, we changed to p.o. Lasix. The patient now is almost euvo lemic. His INR was subtherapeutic and that is why we increased warfarin dose as well. All new medic ation prescriptions given to him upon discharge. For cellulitis, we changed to Keflex and doxycyclin e for another 10 days. Patient was also found with a folate deficiency and that is why folic acid, v itamin B12 was supplemented while in hospital as well as on discharge. Necessary patient education a bout compliance with medication was discussed. During this hospital course, Cardiology group was coty rudolph and they recommended to treat conservatively with medication as above. The patient is doing very well. The patient is stable and euvolemic now to go home. He is at risk f or recurrent admission. While in hospital for his cellulitis, he was given Rocephin and vancomycin. The patient is seen and examined at bedside today. Please see my progress note from today for furthe r detail. Home health was arranged on discharge for jail and physical therapy. The patient is medically stable for discharge today. All new medication prescription sent to his [facility].
== END 2017-08-24 12:13 | disposition home health service (06) | DRG 280 ==
LOC: ERS 14:29 → 2NO 21:31
PROVIDERS: ADMIT Internal Medicine; ATTEND Internal Medicine
DX: I21.A1 Myocardial infarction type 2 (principal); I50.43 Acute on chronic combined systolic (congestive) and diastolic (congestive) heart failure; N17.9 Acute kidney failure, unspecified; D69.6 Thrombocytopenia, unspecified; L03.116 Cellulitis of left lower limb; I13.0 Hypertensive heart and chronic kidney disease with heart failure and stage 1 through stage 4 chronic kidney disease, or unspecified chronic kidney disease; I48.0 Paroxysmal atrial fibrillation; N18.2 Chronic kidney disease, stage 2 (mild); I25.10 Atherosclerotic heart disease of native coronary artery without angina pectoris; F41.9 Anxiety disorder, unspecified; F32.9 Major depressive disorder, single episode, unspecified; E53.8 Deficiency of other specified B group vitamins; Z91.14 Patient's other noncompliance with medication regimen; Z79.01 Long term (current) use of anticoagulants; Z79.82 Long term (current) use of aspirin; Z79.899 Other long term (current) drug therapy; Z95.1 Presence of aortocoronary bypass graft; Z95.0 Presence of cardiac pacemaker
CPT/HCPCS: 36415; 71045; 80053; 80202; 82550; 82553; 82607; 82746; 83036; 83735; 83880; 84484; 85025; 85610; 86140; 87040; 93005; 93010; 93798; 96365; 96375; A4216; J0696; J1650; J1940; J3370; J7050

== ENCOUNTER 2018-10-24 21:18 | Emergency (ER) | payer MEDICARE, OTHER ==
--- NOTE | 2018-10-24 22:13 | RAD ---
XR Chest 1 View Portable History: Fall Comparison: Radiograph 08/20/2017 Findings: Heart size is markedly enlarged. Small effusions. No pneumothorax. Mild pulmonary venous co ngestion. Dual-lead pacer. No acute osseous abnormality. Impression: Marked cardiomegaly and small effusions.
--- NOTE | 2018-10-24 22:35 | CT ---
CT Brain WO Con History: Altered mental status Comparison: None. 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 No acute hemorrhage or infarct. No midline shift or mass effect. Paranasal sinuses and mastoids are clear. 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 No acute intracranial abnormality.
[2018-10-24 22:44] LABS: #Lymphocytes 0.4 thou/uL (1.20-3.40); #Monocytes 0.5 thou/uL (0.11-0.59); #Neutrophils 3.7 thou/uL (1.40-6.50); %Eosinophils 0.4 % (0.0-10.0); %Lymphocytes 9.3 % (21.0-51.0); %Monocytes 10.7 % (0.0-10.0); %Neutrophils 79.6 % (42.0-75.0); Hemoglobin 14.9 g/dL (14.0-18.0); Mean Corpuscular HGB CONC 31.8 g/dL (32.0-36.0); Mean Corpuscular Hemoglobin 32.7 pg (27.0-31.0); Mean Platelet Volume 8.2 fL (7.4-10.4); Platelet Count 131 thou/uL (130-400); RBC Distribution Width 13.7 % (11.5-14.5); Red Blood Cell (RBC) Count 4.54 mill/uL (4.70-6.10); White Blood Cell (WBC) Count 4.6 thou/uL (4.8-10.8)
[2018-10-24 22:45] LABS: ALT (SGPT) 16 U/L (8-55); AST (SGOT) 27 U/L (5-34); Acetaminophen Less than 6.0 mcg/mL (10.0-30.0); Alcohol Less than 10 mg/dL (Less than 10); Alkaline Phosphatase 105 U/L (40-150); Anion Gap 10 mmol/L (10-20); BUN (Urea Nitrogen) 25 mg/dL (8.4-25.7); Bilirubin, Total 1.3 mg/dL (0.2-1.2); Calc. Creatinine Clearance 0 mL/min (70-130); Calcium 8.8 mg/dL (7.8-10.44); Carbon Dioxide 25 mmol/L (23-31); Chloride 108 mmol/L (98-107); Estimated GFR-MDRD 47; Globulin 2.4 g/dL (2.4-3.5); Glucose 104 mg/dL (83-110); Potassium 3.8 mmol/L (3.5-5.1); Protein, Total 5.4 g/dL (5.8-8.1); Salicylate Less than 8.0 mg/dL (15.0-30.0); Sodium 139 mmol/L (136-145)
[2018-10-24] MEDS ORDERED: Furosemide 40 MG/4 ML VIAL ONE (23:31)
[2018-10-25 01:15] LABS: Bilirubin Negative (Negative); Blood, Urine Negative (Negative); Clarity CLEAR (Clear); Glucose, Urine (Dipstick) Negative (Negative); Leukocyte Negative (Negative); Nitrite Negative (Negative); Protein, Urine (Dipstick) Negative (Neg-Trace); Specific Gravity, Urine 1.013 (1.002-1.036)
[2018-10-25 01:23] LABS: Amphetamine Not Detected (NotDetected); Barbiturates Screen Not Detected (NotDetected); Benzodiazepine Screen Not Detected (NotDetected); Cocaine Metabolite Screen Not Detected (NotDetected); Medtox Control Line Valid? VALID (VALID); Medtox Reader # READER 4; Methadone Not Detected (NotDetected); Methamphetamine Not Detected (NotDetected); Opiate Screen Not Detected (NotDetected); Oxycodone Screen Not Detected (NotDetected); Phencyclidine (PCP) Not Detected (NotDetected); THC/Cannabinoid Screen Not Detected (NotDetected); Tricyclic Screen Not Detected (NotDetected)
== END 2018-10-25 02:16 | disposition home or self-care (01) ==
LOC: ERS 21:18
DX: R41.82 Altered mental status, unspecified (principal); I25.10 Atherosclerotic heart disease of native coronary artery without angina pectoris; I10 Essential (primary) hypertension; Z79.82 Long term (current) use of aspirin; Z79.899 Other long term (current) drug therapy; Z79.01 Long term (current) use of anticoagulants
CPT/HCPCS: 36415; 70450; 71045; 80053; 80306; 80307; 81003; 82140; 84484; 85025; 87086; 96374; J1940

== ENCOUNTER 2018-11-11 15:56 | Emergency (ER) | payer MEDICARE, OTHER ==
--- NOTE | 2018-11-11 16:26 | RAD ---
Chest 2 views HISTORY: Altered mental status. COMPARISON: 11/11/2018. FINDINGS: Cardiac silhouette is enlarged. Pulmonary vasculature are within normal limits. Blunting of the right costophrenic angle with fluid extending into the pleural fissure. Mild blunting left lateral costophrenic angle with mild bibasilar atelectasis. Mediastinum is midline with postoperative changes and a dual lead left subclavian cardiac electronic device. IMPRESSION: Small right and minimal left pleural effusion. Cardiomegaly.
[2018-11-11 17:36] LABS: #Lymphocytes 0.7 thou/uL (1.20-3.40); #Monocytes 0.8 thou/uL (0.11-0.59); #Neutrophils 7.2 thou/uL (1.40-6.50); %Eosinophils 0.4 % (0.0-10.0); %Lymphocytes 8.1 % (21.0-51.0); %Monocytes 9.1 % (0.0-10.0); %Neutrophils 82.4 % (42.0-75.0); Hemoglobin 16.2 g/dL (14.0-18.0); Mean Corpuscular Hemoglobin 32.1 pg (27.0-31.0); Mean Platelet Volume 8.4 fL (7.4-10.4); Platelet Count 167 thou/uL (130-400); RBC Distribution Width 13.8 % (11.5-14.5); Red Blood Cell (RBC) Count 5.05 mill/uL (4.70-6.10); White Blood Cell (WBC) Count 8.7 thou/uL (4.8-10.8)
[2018-11-11 17:59] LABS: ALT (SGPT) 20 U/L (8-55); AST (SGOT) 28 U/L (5-34); Albumin 3.6 g/dL (3.4-4.8); Alkaline Phosphatase 128 U/L (40-150); Anion Gap 16 mmol/L (10-20); BUN (Urea Nitrogen) 22 mg/dL (8.4-25.7); Bilirubin, Total 2.1 mg/dL (0.2-1.2); CK (CPK) 95 U/L (30-200); Calc. Creatinine Clearance 0 mL/min (70-130); Calcium 9.2 mg/dL (7.8-10.44); Carbon Dioxide 24 mmol/L (23-31); Chloride 104 mmol/L (98-107); Estimated GFR-MDRD 53; Globulin 2.6 g/dL (2.4-3.5); Glucose 85 mg/dL (83-110); Potassium 4.2 mmol/L (3.5-5.1); Protein, Total 6.2 g/dL (5.8-8.1); Sodium 140 mmol/L (136-145)
--- NOTE | 2018-11-11 18:28 | ULT ---
VENOUS DOPPLER ULTRASOUND OF THE RIGHT LOWER EXTREMITY: 11/11/18 HISTORY: Right lower extremity edema. TECHNIQUE: Yates scale ultrasound with color flow and spectral Doppler imaging of the deep venous system of the r ight lower extremity was performed. FINDINGS: There is good flow, compression, and augmentation noted in the right common femoral, femoral, deep f emoral, popliteal, posterior tibial and greater saphenous veins. IMPRESSION: No evidence of DVT in the right lower extremity. POS: [facility]
--- NOTE | 2018-11-14 13:29 | EKG ---
Test Reason : ER INDICATION Blood Pressure : / mmHG Vent. Rate : 096 BPM Atrial Rate : 055 BPM P-R Int : 000 ms QRS Dur : 128 ms QT Int : 388 ms P-R-T Axes : 000 -56 139 degrees QTc Int : 490 ms Atrial fibrillation with occasional ventricular-paced complexes Left axis deviation Non-specific intra-ventricular conduction block Cannot rule out Septal infarct , age undetermined Possible Lateral infarct , age undetermined Inferior infarct , age undetermined Abnormal ECG Confirmed by JORDAN DELGADO DO ([id number]), photography editor JUAN PABLO HUGGINS ([id number]) on 11/14/2018 1:29:33 PM Referred By: Confirmed By:JORDAN DELGADO DO
== END 2018-11-11 20:08 | disposition home or self-care (01) ==
LOC: ERS 15:56
DX: L03.115 Cellulitis of right lower limb (principal); E87.70 Fluid overload, unspecified; R60.0 Localized edema; I25.10 Atherosclerotic heart disease of native coronary artery without angina pectoris; I10 Essential (primary) hypertension; Z79.899 Other long term (current) drug therapy; Z79.01 Long term (current) use of anticoagulants; Z79.891 Long term (current) use of opiate analgesic
CPT/HCPCS: 36415; 71046; 80053; 82550; 83880; 84484; 85025; 93005

== ENCOUNTER 2019-03-10 08:06 | Inpatient (IN) | payer MEDICARE ==
--- NOTE | 2019-03-10 08:30 | RAD ---
EXAM: Chest PA and lateral: HISTORY: Cough. COMPARISON: 11/11/2018 FINDINGS: Left-sided transvenous pacemaker and sternotomy wires. Heart: Cardiomegaly. Aorta: Atherosclerosis Pulmonary vessels: Normal Costophrenic angles: Minimal blunting of the right costophrenic angle. Trace effusion or atelectasis should be considered Lungs: No consolidation or masses. Pneumothorax: No pneumothorax Osseous structures: No osseous abnormalities IMPRESSION: 1. Cardiomegaly, without evidence of congestive heart failure. 2. Atherosclerosis
[2019-03-10 08:40] LABS: #Lymphocytes 0.4 thou/uL (1.20-3.40); #Monocytes 0.6 thou/uL (0.11-0.59); #Neutrophils 6.9 thou/uL (1.40-6.50); %Eosinophils 0.6 % (0.0-10.0); %Lymphocytes 5.1 % (21.0-51.0); %Monocytes 7.6 % (0.0-10.0); %Neutrophils 86.7 % (42.0-75.0); Hemoglobin 12.9 g/dL (14.0-18.0); Mean Corpuscular HGB CONC 31.4 g/dL (32.0-36.0); Mean Corpuscular Hemoglobin 33.4 pg (27.0-31.0); Mean Platelet Volume 7.6 fL (7.4-10.4); Platelet Count 145 thou/uL (130-400); RBC Distribution Width 13.8 % (11.5-14.5); Red Blood Cell (RBC) Count 3.85 mill/uL (4.70-6.10); White Blood Cell (WBC) Count 7.9 thou/uL (4.8-10.8)
[2019-03-10 08:59] LABS: Elliptocytes SLIGHT = 2-5 cells (100X) (0-1/hpf); Hypochromia SLIGHT = 6-15 cells (100X) (0-5/hpf); MDiff Complete? YES; Macrocytosis MODERATE=16-30 cells (100X) (0-5/hpf); Ovalocytes SLIGHT = 2-5 cells (100X) (0-1/hpf); Platelet Morphology Comment Appears Adequate; Polychromasia SLIGHT = 2-3 cells (100X) (0-2/hpf); Schistocytes SLIGHT = 2-5 cells (100X) (0-1/hpf)
[2019-03-10 09:06] LABS: ALT (SGPT) 13 U/L (8-55); AST (SGOT) 22 U/L (5-34); Albumin 4.1 g/dL (3.4-4.8); Alkaline Phosphatase 110 U/L (40-110); Anion Gap 14 mmol/L (10-20); BUN (Urea Nitrogen) 22 mg/dL (8.4-25.7); Bilirubin, Total 1.7 mg/dL (0.2-1.2); Calc. Creatinine Clearance 0 mL/min (70-130); Calcium 9.5 mg/dL (7.8-10.44); Carbon Dioxide 21 mmol/L (23-31); Chloride 110 mmol/L (98-107); Estimated GFR-MDRD 42; Globulin 3.1 g/dL (2.4-3.5); Glucose 124 mg/dL (83-110); Protein, Total 7.2 g/dL (5.8-8.1); Sodium 141 mmol/L (136-145)
[2019-03-10] MEDS ORDERED: ISOVUE-370 76%-LOCM 1 ML ONE (09:48)
[2019-03-10] MEDS ORDERED: methylPREDNISolone Sod Succ/PF 125 MG/2 ML VIAL ONE (10:27)
[2019-03-10] MEDS ORDERED: cefTRIAXone\\ROCEPHIN 2 GM VIAL ONE (10:27)
[2019-03-10 10:38] LABS: INR-International Normal Ratio 1.5; Prothrombin Time 17.9 SEC (12.0-14.7)
[2019-03-10] MEDS ORDERED: Aspirin 81 mg Enteric Coated Tablet ONE (10:53)
[2019-03-10] MEDS ORDERED: Nitroglycerin 2% Ointment 1 INCH/1 GM Packet ONE (12:49)
--- NOTE | 2019-03-10 13:31 | CT ---
CT ANGIOGRAM OF THE CHEST: HISTORY: Dyspnea. COMPARISON: 02/08/2017. TECHNIQUE: CT angiogram of the chest is performed in the axial plane. Three-dimensional reformatted images are s ubmitted for interpretation. FINDINGS: Mediastinum: No mass, lymphadenopathy or hematoma. Heart: Heart is enlarged. No significant pericardial fluid. Reflux of contrast into the inferior vena cava suggesting right heart failure. Aorta: Atherosclerosis. No evidence of dilatation or periaortic fat stranding. Upper solid abdominal viscera: No abnormality enhancement. Trachea and central bronchi: Patent. Pleural spaces: Small right and trace left pleural effusion. Lung parenchyma: Patchy groundglass opacities involving both lower lobes. No suspicious masses, conso lidation or nodules. Pneumothorax: None. Osseous structures: No lytic or blastic lesions. Pulmonary arteries: Adequate contrast opacification pulmonary arterial system to the level of segment al arteries. No filling defect to suggest pulmonary embolism. IMPRESSION: 1. No evidence of pulmonary artery embolism to the level of the segmental arteries. 2. Cardiomegaly, pleural effusion and patchy groundglass opacities. Congestive heart failure. 3. Right heart failure. Transcribed Date/Time: 03/10/2019 1:34 PM
[2019-03-10 13:49] LABS: Troponin I 0.026 ng/mL (< 0.028)
[2019-03-10] MEDS ORDERED: Senokot S 8.6-50 MG TAB PO PRN (14:07)
[2019-03-10] MEDS ORDERED: Acetaminophen 325 MG TAB PO PRN (14:07)
[2019-03-10] MEDS ORDERED: Furosemide 20 MG/2 ML VIAL ONE (14:26)
[2019-03-10 16:14] LABS: Troponin I 0.025 ng/mL (< 0.028)
[2019-03-10] MEDS ORDERED: Azithromycin 500 MG in Sodium Chloride 0.9% 250 ML 250 ML IVPB SCH (17:00)
--- NOTE | 2019-03-10 17:26 | HP ---
PRIMARY CARE PHYSICIAN: Dr. Washington. CHIEF COMPLAINT: Shortness of breath. HISTORY OF PRESENT ILLNESS: Mr. Ferris is an 83-year-old man, who reported to the emergency room today after complaints of dyspnea, which he stated it started last night and prevented him from sleeping. He reports the cough is productive and he is able to cough up some phlegm. Past medical history is CHF, coronary artery disease, hypertension, and recent history of shingles. Family reports he was out on Friday at [facility] and it is possible that he could have caught something viral from the number of people he was around on Friday. Reports that he is on several medications including Coumadin and Lasix, but states his family practice doctor took him off all his medications over a month ago because he had lost 56 pounds without intending to. Reports that they put him back on his medications about a week ago, but he has not started taking them again. Does report that he takes a "fluid pill" when he notices that his legs are getting swollen and reports that he takes this at night and is up between 12 and 15 times a night to urinate after he takes a fluid pill. 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 Had a CABG done in 2012 five-vessel and reports that his housing case manager is Dr. Yepez. In the emergency room, he was found to have diminished breath sounds, especially in the left lower lobe with diffuse wheezing and crackles. Edema was present to bilateral lower extremities are +3. Last echocardiogram we have on file is from February of 2017. At that time, he had an EF of 35% to 40%, some diastolic dysfunction. Left atrium normal size. Moderately enlarged right atrium. Mild mitral regurg. Mitral annular calcification. Mild thickening of the anterior leaflet of the mitral valve. Mild thickening of the posterior leaflet of the mitral valve, aortic valve leaflet was somewhat thickened. Trivial aortic regurgitation and gdwl-jy-gvzyqiog tricuspid regurgitation. In the emergency room, the patient was given several neb treatments, was given a bolus of 500 mL and aspirin, Rocephin, Nitro-Bid transdermal, Solu-Medrol 125 and reports that after these medications, he does feel a little bit better. He is still sitting upright. He is using O2 to keep his saturations up to above 92, which he reports this is baseline. At home, he reports that he does not use oxygen normally. He will be admitted to the telemetry unit for further evaluation. REVIEW OF SYSTEMS: CONSTITUTIONAL: The patient reports chills. Denies fever. Does report a cough and shortness of breath. GI: Denies any abdominal pain, nausea, vomiting, diarrhea, or constipation. HEENT: Denies sore throat. All systems reviewed and are negative unless mentioned in the HPI. PAST MEDICAL HISTORY: Please see HPI. PAST SURGICAL HISTORY: Coronary artery bypass x5 vessel in 2012, has a pacemaker. PSYCHIATRIC HISTORY: None. SOCIAL HISTORY: Lives at home alone. Reports that his youngest daughter, who is a surrogate decision maker, lives about a mile from his house. He denies any drug use. No smoking history. PHYSICAL EXAMINATION: VITAL SIGNS: Blood pressure 169/105, pulse is 119, respiratory rate is 19, O2 saturations are 100% on 4 L. CONSTITUTIONAL: He is alert and oriented to person, place, and time. He is in mild respiratory distress. HEENT: Head is atraumatic and normocephalic. Eyes, pupils are equally round and reactive to light. Extraocular muscles are intact. ENT; mucous membranes are moist. Mouth exam is normal. NECK: Normal range of motion. Trachea is midline. RESPIRATORY: Chest, breath sounds diminished at the bases, diffusely wheezing and rhonchi. Chest expansion is equal. CARDIOVASCULAR: Irregular rate and rhythm. Heart sounds are normal. Pacemaker noted in the left upper chest. ABDOMEN: Nontender. Bowel sounds are heard. BACK: Normal range of motion. No CVA tenderness. EXTREMITIES: Upper extremity, normal range of motion. Inspection is normal. Radial pulses are normal. Lower extremity, normal range of motion. Sensation intact. Pedal pulses are normal. There is +3 edema noted, bilateral extremities pitting. NEUROLOGIC: The patient is alert to person, place, and time. Speech is normal. SKIN: Warm, dry, and normal in color. PSYCH: He has a normal affect. LABORATORY DATA: EKG in the emergency room shows sinus tach, first-degree AV block with premature atrial complexes with occasional junctional escape complexes, intraventricular block. The patient's chest x-ray shows left-sided pacemaker and sternotomy wires. Heart, some cardiomegaly an aorta, atherosclerosis. Normal pulmonary vessels. Minimal blunting of the right costophrenic angle. No consolidation or masses. Impression, cardiomegaly without any evidence of congestive heart failure. The patient also had a CTA of the chest and thorax. Impression, no pulmonary emboli is noted. Cardiomegaly, pleural effusion and patchy ground glass opacities, congestive heart failure, right-sided heart failure. ASSESSMENT AND PLAN: 1. Hypoxia and dyspnea with new oxygen demand. Multicomponent suspected, may have certainly picked up a viral illness, upper respiratory on Friday when he was out with his family. He has a history of congestive heart failure with the last echocardiogram we have here for 2015 shows the EF of 35% to 40%. The patient has been without his daily medications for at least a month. We will obtain a new echocardiogram. Start Lasix IV push daily, the patient was given 20 mg in the ER and DuoNeb q.6 hours. We will gently diurese. Add a viral respiratory panel. The patient was given antibiotics in the ER. We will wait for the viral panel before restarting. 2. History of hypertension. We will restart home medications trend and add p.r.n. medications as needed. 3. History of atrial fibrillation. The patient was tachycardic in the emergency room and suspect that some of this might be underlying atrial fibrillation. We will place the patient on the monitor. We will keep a watchful eye. Restart the Coumadin at 5 mg. INR states that he is currently at 1.5. We will check an INR daily. 4. Hyperlipidemia. Restart home medications. 5. History of congestive heart failure. Please see #1. 6. Chronic kidney disease, slightly worse than baseline from January, which is 1.29, today is 1.75, with gently the patient had some fluids today. We will recheck in the morning. 7. Deep venous thrombosis and gastrointestinal prophylaxis, Coumadin for the deep venous thrombosis prophylaxis. 8. Case discussed with Dr. Cardona, who agrees with plan. 9. Hospital course dependent on clinical findings. Job ID: [id number]
[2019-03-10] MEDS: Warfarin Sodium 5 MG TAB PO SCH (17:54)
[2019-03-11 05:07] LABS: INR-International Normal Ratio 1.7; PTT 39.2 SEC (22.9-36.1); Prothrombin Time 19.5 SEC (12.0-14.7)
[2019-03-11 05:25] LABS: ALT (SGPT) 11 U/L (8-55); AST (SGOT) 16 U/L (5-34); Albumin 3.6 g/dL (3.4-4.8); Alkaline Phosphatase 89 U/L (40-110); Anion Gap 15 mmol/L (10-20); BUN (Urea Nitrogen) 24 mg/dL (8.4-25.7); Calc. Creatinine Clearance 40 mL/min (70-130); Calcium 8.9 mg/dL (7.8-10.44); Carbon Dioxide 19 mmol/L (23-31); Chloride 110 mmol/L (98-107); Estimated GFR-MDRD 46; Globulin 2.8 g/dL (2.4-3.5); Glucose 125 mg/dL (83-110); Potassium 4.1 mmol/L (3.5-5.1); Protein, Total 6.4 g/dL (5.8-8.1); Sodium 140 mmol/L (136-145)
[2019-03-11 05:30] LABS: #Lymphocytes 0.2 thou/uL (1.20-3.40); #Monocytes 0.4 thou/uL (0.11-0.59); #Neutrophils 4.8 thou/uL (1.40-6.50); %Basophils 0.8 % (0.0-1.0); %Lymphocytes 3.5 % (21.0-51.0); %Monocytes 6.7 % (0.0-10.0); Hemoglobin 11.3 g/dL (14.0-18.0); Mean Corpuscular HGB CONC 32.2 g/dL (32.0-36.0); Mean Corpuscular Hemoglobin 33.7 pg (27.0-31.0); Mean Platelet Volume 8.3 fL (7.4-10.4); Platelet Count 113 thou/uL (130-400); Platelet Morphology Comment Appears Decreased; RBC Distribution Width 13.8 % (11.5-14.5); Red Blood Cell (RBC) Count 3.36 mill/uL (4.70-6.10); White Blood Cell (WBC) Count 5.4 thou/uL (4.8-10.8)
[2019-03-11] MEDS ORDERED: FLU VACC TS2019-20(65YR UP)/PF 180 MCG/0.5 ML SYRINGE IM ONE (09:00)
[2019-03-11] MEDS ORDERED: Famotidine 20 MG TAB PO SCH (09:00)
[2019-03-11] MEDS: Furosemide 40 MG/4 ML VIAL SLOW IVP SCH (09:20)
[2019-03-11] MEDS: cefTRIAXone\\ROCEPHIN 1 GM in Sodium Chloride 0.9% 100 ML IVPB SCH (11:48)
[2019-03-11] MEDS ORDERED: Furosemide 20 MG/2 ML VIAL SLOW IVP SCH (16:00)
[2019-03-11] MEDS ORDERED: Losartan 25 MG TAB PO SCH (16:00)
[2019-03-11] MEDS: Warfarin Sodium 5 MG TAB PO SCH (16:48)
[2019-03-11] MEDS: predniSONE 20 MG TAB PO SCH (16:48)
[2019-03-11] MEDS: Famotidine 20 MG TAB PO SCH (21:00)
[2019-03-11] MEDS: Atorvastatin Calcium 40 MG TAB PO SCH (21:00)
[2019-03-11] MEDS: guaiFENesin ER 600 MG TAB PO SCH (21:00)
[2019-03-11] MEDS: Doxycycline 100 MG CAP PO SCH (21:00)
--- NOTE | 2019-03-11 22:36 | PDOC.HOSPP ---
- Subjective Encounter Date: 03/11/19 Encounter Time: 15:30 Subjective: Patient seen and examined for Resp failure. SOB improving. No fever/CP. No new complaints. No overnight events - Objective Vital Signs & Weight: Vital Signs (12 hours) Temp Pulse Pulse Pulse Resp BP BP 03/11/19 20:20 97.3 F L 94 18 03/11/19 18:53 03/11/19 15:10 97.4 F L 83 19 03/11/19 14:10 92 16 03/11/19 13:35 97 107 H 161/106 H 171/104 H 03/11/19 11:51 97.8 F 90 23 H BP BP Pulse Ox Pulse Ox Pulse Ox 03/11/19 20:20 167/100 H 93 L 03/11/19 18:53 94 L 03/11/19 15:10 137/91 H 94 L 03/11/19 14:10 97 03/11/19 13:35 96 94 L 03/11/19 11:51 161/108 H 94 L Weight Weight 168 lb 1 oz I&O: 03/10/19 03/11/19 03/12/19 06:59 06:59 06:59 Intake Total 700 Balance 700 Result Diagrams: 03/11/19 04:39 03/11/19 04:39 Additional Labs: Microbiology 03/10/19 23:07 Nasopharyngeal swab Respiratory Virus Panel (PCR) - Final 03/10/19 10:16 Venous blood - Left Arm Blood Culture - Preliminary Specimen has been received and culture in progress. No Growth to date. 03/10/19 10:16 Venous blood - Left Arm Blood Culture - Preliminary Gram Positive Cocci Laboratory Tests 03/10/19 03/11/19 09:26 04:39 INR 1.7 B-Natriuretic Peptide 619.7 H EKG Reviewed by me: Yes (Tele paced) Hospitalist ROS - Review of Systems Constitutional: denies: fever, chills, sweats, weakness, malaise, other Respiratory: reports: cough, dry, SOB with excertion. denies: shortness of breath, hemoptysis, pleuritic pain, sputum, wheezing, other Cardiovascular: denies: chest pain, palpitations, orthopnea, paroxysmal noc. dyspnea, edema, light headedness, other - Medication Medications: Active Medications Generic Name Dose Route Start Last Admin Trade Name Freq PRN Reason Stop Dose Admin Albuterol/Ipratropium 3 ml 03/11/19 18:30 03/11/19 18:53 Duoneb NEB 3 ml [id number] NOHEMY Administration Atorvastatin Calcium 40 mg 03/11/19 21:00 03/11/19 21:00 Lipitor PO 40 mg HS NOHEMY Administration Doxycycline Hyclate 100 mg 03/11/19 21:00 03/11/19 21:00 Vibramycin PO 100 mg BID NOHEMY Administration Famotidine 20 mg 03/11/19 21:00 03/11/19 21:00 Pepcid PO 20 mg BID NOHEMY Administration Furosemide 40 mg 03/11/19 09:00 03/11/19 09:20 Lasix SLOW IVP 40 mg DAILY NOHEMY Administration Guaifenesin 600 mg 03/11/19 21:00 03/11/19 21:00 Mucinex PO 600 mg Q12HR NOHEMY Administration Ceftriaxone Sodium 1 gm/ 100 mls @ 200 mls/hr 03/11/19 11:00 03/11/19 11:48 Sodium Chloride IVPB 100 mls Q24HR NOHEMY Administration Prednisone 20 mg 03/11/19 17:00 03/11/19 16:48 Prednisone PO 20 mg BID-WM NOHEMY Administration Warfarin Sodium 5 mg 03/10/19 17:00 03/11/19 16:48 Coumadin PO 5 mg 1700 NOHEMY Administration - Exam General Appearance: NAD Neck: supple, no JVD Heart: RRR, no gallops, no rubs, normal peripheral pulses Respiratory: normal chest expansion, no tachypnea, rhonchi, wheezes Gastrointestinal: soft, non-tender, non-distended, normal bowel sounds Extremities: 1+ LE edema Hosp A/P - Plan plan discussed w/ family Acute hypoxic Resp failure Acute on chronic Systolic HF Acute Bronchitis due to Rhinovirus CKD 3 Med noncompliance HTN Chr Afib - on Warfarin Subtherapeutic INR HLD PLAN: Cont IV Lasix Add Losartan AM labs Add Steroids Await Echo Await blood cultures Increase Warfarin dose CXR in AM to r/o Pneumonia Cont other meds
[2019-03-12] MEDS ORDERED: Vancomycin HCl 1.75 GM in Sodium Chloride 0.9% 500 ML IVPB SCH (02:15)
[2019-03-12 05:23] LABS: INR-International Normal Ratio 1.5; Prothrombin Time 18.1 SEC (12.0-14.7)
[2019-03-12 05:24] LABS: PTT 37.8 SEC (22.9-36.1)
[2019-03-12 05:33] LABS: #Lymphocytes 0.4 thou/uL (1.20-3.40); #Monocytes 0.3 thou/uL (0.11-0.59); #Neutrophils 6.5 thou/uL (1.40-6.50); %Eosinophils 0.1 % (0.0-10.0); %Lymphocytes 5.4 % (21.0-51.0); %Monocytes 4.4 % (0.0-10.0); %Neutrophils 90.2 % (42.0-75.0); Hemoglobin 13.1 g/dL (14.0-18.0); Mean Corpuscular HGB CONC 31.2 g/dL (32.0-36.0); Mean Corpuscular Hemoglobin 33.2 pg (27.0-31.0); Mean Platelet Volume 8.5 fL (7.4-10.4); Platelet Count 144 thou/uL (130-400); Red Blood Cell (RBC) Count 3.94 mill/uL (4.70-6.10); White Blood Cell (WBC) Count 7.2 thou/uL (4.8-10.8)
[2019-03-12 05:57] LABS: ALT (SGPT) 13 U/L (8-55); AST (SGOT) 19 U/L (5-34); Albumin 4.1 g/dL (3.4-4.8); Alkaline Phosphatase 99 U/L (40-110); Anion Gap 17 mmol/L (10-20); BUN (Urea Nitrogen) 31 mg/dL (8.4-25.7); Bilirubin, Total 1.1 mg/dL (0.2-1.2); Calc. Creatinine Clearance 39 mL/min (70-130); Calcium 9.2 mg/dL (7.8-10.44); Carbon Dioxide 20 mmol/L (23-31); Chloride 108 mmol/L (98-107); Estimated GFR-MDRD 44; Globulin 3.1 g/dL (2.4-3.5); Glucose 108 mg/dL (83-110); Magnesium 2.2 mg/dL (1.6-2.6); Potassium 4.2 mmol/L (3.5-5.1); Protein, Total 7.2 g/dL (5.8-8.1); Sodium 141 mmol/L (136-145)
[2019-03-12 06:19] VITALS: BMI 24.3
[2019-03-12] MEDS: Doxycycline 100 MG CAP PO SCH (08:50)
[2019-03-12] MEDS: Escitalopram Oxalate 10 mg Tablet PO SCH (08:50)
[2019-03-12] MEDS: Dutasteride 0.5 MG CAP PO SCH (08:50)
[2019-03-12] MEDS: Famotidine 20 MG TAB PO SCH (08:50)
[2019-03-12] MEDS: predniSONE 20 MG TAB PO SCH ×2 (08:51→17:48)
[2019-03-12] MEDS: Cyanocobalamin (Vitamin B-12) 1,000 MCG TAB PO SCH (08:51)
[2019-03-12] MEDS: Folic Acid 1 MG TAB PO SCH (08:51)
[2019-03-12] MEDS: guaiFENesin ER 600 MG TAB PO SCH ×2 (08:51→20:31)
[2019-03-12] MEDS: Multivit, Therapeutic 1 TAB PO SCH (08:51)
[2019-03-12] MEDS: Aspirin Chewable 81 MG TAB PO SCH (08:51)
[2019-03-12] MEDS: Furosemide 40 MG/4 ML VIAL SLOW IVP SCH (08:51)
[2019-03-12] MEDS ORDERED: Saccharomyces boulardii 250 MG CAP PO SCH (09:00)
[2019-03-12] MEDS ORDERED: Vancomycin HCl 1 GM in Premix Bag 1 BAG IVPB SCH (09:00)
[2019-03-12] MEDS ORDERED: Losartan 25 MG TAB PO SCH ×2 (09:00)
--- NOTE | 2019-03-12 11:27 | RAD ---
PA AND LATERAL CHEST: Date: 03/12/19 HISTORY: Shortness of breath and cough. COMPARISON: 03/10/19 study. FINDINGS: Heart size is enlarged with pacemaker and postop sternotomy changes. Lungs show chronic change. No fo bridgette infiltrates. IMPRESSION: Cardiomegaly with some chronic lung change. Stable chest. POS: [facility]
[2019-03-12] MEDS: cefTRIAXone\\ROCEPHIN 1 GM in Sodium Chloride 0.9% 100 ML IVPB SCH (11:32)
[2019-03-12] MEDS ORDERED: Warfarin Sodium 7.5 MG TAB PO SCH (17:00)
--- NOTE | 2019-03-12 17:50 | CON ---
DATE OF CONSULTATION: 03/12/2019 PRIMARY STAFF ACCOUNTANT: Dr. Yepez. REASON FOR CONSULTATION: Heart failure. HISTORY OF PRESENT ILLNESS: Mr. Ferris is a very pleasant 83-year-old white gentleman, who has been seen here in the past by Dr. Thompson, but is followed as an outpatient by Dr. Yepez, who comes into the hospital for shortness of breath. He apparently has been out of his medications for about a month, and he has also been out and may have caught respiratory block. He was admitted for volume overload. He has a history of cardiomyopathy with 5-vessel bypass in 2011. He had an EF of 35% to 40%, last time he was evaluated here. He was admitted. A repeat echo showed EF of 35% to 40%. He was diuresed and is feeling much better now. He has a positive viral PCR for rhinovirus. He is feeling better. He denies any chest pain, tightness, or pressure. No more shortness of breath. He is back to baseline. PAST MEDICAL HISTORY: 1. History of ischemic cardiomyopathy. 2. Coronary artery disease. 3. Hypertension. 4. Shingles in the past. 5. Depression. 6. History of atrial fibrillation. 7. Anxiety and depression. PAST SURGICAL HISTORY: 1. Hernia repair. 2. Pacemaker placement. 3. Coronary artery bypass grafting x5 in 2011. ALLERGIES: NO KNOWN DRUG ALLERGIES. OUTPATIENT MEDICATIONS: 1. Avodart. 2. Lipitor 40 mg at bedtime. 3. Pepcid. 4. Escitalopram 10 mg a day. 5. Aspirin 81 a day. 6. Lasix 80 mg b.i.d. ALLERGIES: NO KNOWN DRUG ALLERGIES. SOCIAL HISTORY: No alcohol, tobacco, or drugs. FAMILY HISTORY: Noncontributory. REVIEW OF SYSTEMS: A 12-point review of systems was done and was found to be negative unless stated in the history of present illness. PHYSICAL EXAMINATION: VITAL SIGNS: Temperature 97.2, pulse 98, respiratory rate 18, saturating 99% on room air, blood pressure 177/94. GENERAL: Awake, alert, oriented x3. No distress. HEENT: Normocephalic, atraumatic. NECK: Supple. LUNGS: Clear. CARDIOVASCULAR: S1 and S2. No S3 or S4. ABDOMEN: Soft. Positive bowel sounds. EXTREMITIES: No edema. SKIN: Warm and dry. LABORATORY DATA: Laboratory work was reviewed. White count of 7, hemoglobin 13 , hematocrit 42, platelet count of 144. Coags were reviewed. Chemistries were reviewed. Creatinine at 1.5, close to his baseline. BNP was 600. Troponin was negative x2. EKG was reviewed. Echocardiogram showed an EF of 35% to 40%. ASSESSMENT: 1. Zeylu-km-chjyerd systolic heart failure, likely related to medication noncompliance and rhinovirus. 2. Ischemic cardiomyopathy. 3. Coronary artery disease, stable. No acute coronary syndrome. PLAN: Blood pressure concerningly is better control. He has been on his home medications, but he is not on optimal medical therapy. He has been given losartan at 25. I will stop losartan and put him on Entresto at 24/26 dose. We will add carvedilol to his regimen as well. We will start low at 3.125 twice a day. Continue warfarin for stroke prophylaxis for his atrial fibrillation. Thank you for letting me to participate in the care of your patient. He may be discharged at any point with followup with Dr. Yepez in 1 to 2 months. Job ID: [id number] [facility]
--- NOTE | 2019-03-12 19:46 | PDOC.HOSPP ---
- Subjective Encounter Date: 03/12/19 Encounter Time: 11:30 Subjective: Patient seen and examined for CHF/Resp failure. SOB improving. No CP. No other complaints. No overnight events - Objective Vital Signs & Weight: Vital Signs (12 hours) Temp Pulse Pulse Pulse Resp BP BP 03/12/19 18:59 76 18 03/12/19 16:20 97.2 F L 98 18 03/12/19 14:35 88 16 03/12/19 11:40 98.5 F 86 18 03/12/19 10:30 88 16 03/12/19 09:52 103 H 94 172/120 H 162/95 H 03/12/19 08:40 98.1 F 98 18 BP BP BP Pulse Ox 03/12/19 18:59 98 03/12/19 16:20 177/94 H 99 03/12/19 14:35 96 03/12/19 11:40 153/103 H 89 L 03/12/19 10:30 100 03/12/19 09:52 180/114 H 03/12/19 08:40 168/97 H 95 Weight Weight 164 lb 9.6 oz I&O: 03/11/19 03/12/19 03/13/19 06:59 06:59 06:59 Intake Total 1430 1180 Balance 1430 1180 Result Diagrams: 03/12/19 05:07 03/12/19 05:07 Radiology Reviewed by me: Yes (CXR - No infiltrate) EKG Reviewed by me: Yes (Tele Paced) Hospitalist ROS - Review of Systems Respiratory: denies: cough, dry, shortness of breath, hemoptysis, SOB with excertion, pleuritic pain, sputum, wheezing, other Cardiovascular: denies: chest pain, palpitations, orthopnea, paroxysmal noc. dyspnea, edema, light headedness, other - Medication Medications: Active Medications Generic Name Dose Route Start Last Admin Trade Name Freq PRN Reason Stop Dose Admin Albuterol/Ipratropium 3 ml 03/11/19 18:30 03/12/19 18:59 Duoneb NEB 3 ml [id number] NOHEMY Administration Aspirin 81 mg 03/12/19 09:00 03/12/19 08:51 Aspirin Chewable PO 81 mg DAILY NOHEMY Administration Atorvastatin Calcium 40 mg 03/11/19 21:00 03/11/19 21:00 Lipitor PO 40 mg HS NOHEMY Administration Cyanocobalamin 1,000 mcg 03/12/19 09:00 03/12/19 08:51 Vitamin B-12 PO 1,000 mcg DAILY NOHEMY Administration Doxycycline Hyclate 100 mg 03/11/19 21:00 03/12/19 08:50 Vibramycin PO 100 mg BID NOHEMY Administration Dutasteride 0.5 mg 03/12/19 09:00 03/12/19 08:50 Avodart PO 0.5 mg DAILY NOHEMY Administration Escitalopram Oxalate 10 mg 03/12/19 09:00 03/12/19 08:50 Lexapro PO 10 mg DAILY NOHEMY Administration Folic Acid 1 mg 03/12/19 09:00 03/12/19 08:51 Folvite PO 1 mg DAILY NOHEMY Administration Furosemide 40 mg 03/11/19 09:00 03/12/19 08:51 Lasix SLOW IVP 40 mg DAILY NOHEMY Administration Guaifenesin 600 mg 03/11/19 21:00 03/12/19 08:51 Mucinex PO 600 mg Q12HR NOHEMY Administration Multivitamins 1 tab 03/12/19 09:00 03/12/19 08:51 Theragran PO 1 tab DAILY NOHEMY Administration Warfarin Sodium 7.5 mg 03/12/19 17:00 03/12/19 17:48 Coumadin PO 7.5 mg [address] [facility] Administration - Exam General Appearance: NAD Neck: supple, no JVD Heart: RRR, no gallops Respiratory: no rales, normal chest expansion, rhonchi, wheezes Gastrointestinal: soft, non-tender, normal bowel sounds Extremities: no clubbing Hosp A/P - Plan Acute hypoxic Resp failure Acute on chronic Systolic HF Acute Bronchitis due to Rhinovirus CKD 3 Med noncompliance HTN Chr Afib - on Warfarin Subtherapeutic INR HLD PLAN: Cont IV Lasix 40 mg daily Change Steroids to PO Echo reviewed Blood cultures /2 CN Staph - contaminant - I d/w Dr Robledo Cont Warfarin AM labs Cont Omnicef DC Doxycycline Cont other meds
[2019-03-12] MEDS: Atorvastatin Calcium 40 MG TAB PO SCH (20:31)
[2019-03-12] MEDS: Cefdinir 300 MG CAP PO SCH (20:31)
[2019-03-12] MEDS ORDERED: Sacubitril 24.5 MG/Valsartan 25.5 MG TABLET PO SCH (21:00)
[2019-03-13] MEDS ORDERED: Vancomycin HCl 1 GM in Premix Bag 1 BAG IVPB SCH (03:00)
[2019-03-13 04:57] LABS: #Lymphocytes 0.3 thou/uL (1.20-3.40); #Monocytes 0.3 thou/uL (0.11-0.59); #Neutrophils 4.1 thou/uL (1.40-6.50); %Eosinophils 0.2 % (0.0-10.0); %Lymphocytes 6.2 % (21.0-51.0); %Monocytes 6.5 % (0.0-10.0); %Neutrophils 87.1 % (42.0-75.0); Mean Corpuscular HGB CONC 32.2 g/dL (32.0-36.0); Mean Corpuscular Hemoglobin 33.6 pg (27.0-31.0); Mean Platelet Volume 8.2 fL (7.4-10.4); Platelet Count 135 thou/uL (130-400); RBC Distribution Width 13.7 % (11.5-14.5); Red Blood Cell (RBC) Count 3.87 mill/uL (4.70-6.10); White Blood Cell (WBC) Count 4.7 thou/uL (4.8-10.8)
[2019-03-13 04:59] LABS: INR-International Normal Ratio 1.5; PTT 36.6 SEC (22.9-36.1); Prothrombin Time 18.1 SEC (12.0-14.7)
[2019-03-13 05:19] LABS: ALT (SGPT) 13 U/L (8-55); AST (SGOT) 18 U/L (5-34); Albumin 3.7 g/dL (3.4-4.8); Alkaline Phosphatase 93 U/L (40-110); Anion Gap 16 mmol/L (10-20); BUN (Urea Nitrogen) 32 mg/dL (8.4-25.7); Bilirubin, Total 0.9 mg/dL (0.2-1.2); Calc. Creatinine Clearance 42 mL/min (70-130); Calcium 9.2 mg/dL (7.8-10.44); Carbon Dioxide 20 mmol/L (23-31); Chloride 106 mmol/L (98-107); Estimated GFR-MDRD 50; Globulin 3.1 g/dL (2.4-3.5); Glucose 112 mg/dL (83-110); Potassium 3.9 mmol/L (3.5-5.1); Protein, Total 6.8 g/dL (5.8-8.1); Sodium 138 mmol/L (136-145)
[2019-03-13] MEDS ORDERED: predniSONE 20 MG TAB PO SCH (08:00)
[2019-03-13] MEDS ORDERED: Carvedilol 3.125 MG TAB PO SCH (08:00)
[2019-03-13] MEDS: Cefdinir 300 MG CAP PO SCH (08:56)
[2019-03-13] MEDS: Folic Acid 1 MG TAB PO SCH (08:56)
[2019-03-13] MEDS: Furosemide 40 MG/4 ML VIAL SLOW IVP SCH (08:57)
[2019-03-13] MEDS: Aspirin Chewable 81 MG TAB PO SCH (08:57)
[2019-03-13] MEDS: Multivit, Therapeutic 1 TAB PO SCH (08:57)
[2019-03-13] MEDS: guaiFENesin ER 600 MG TAB PO SCH (08:57)
[2019-03-13] MEDS: Dutasteride 0.5 MG CAP PO SCH (08:57)
[2019-03-13] MEDS: Escitalopram Oxalate 10 mg Tablet PO SCH (08:57)
[2019-03-13] MEDS: Cyanocobalamin (Vitamin B-12) 1,000 MCG TAB PO SCH (08:57)
[2019-03-13] MEDS ORDERED: Famotidine 20 MG TAB PO SCH (09:00)
[2019-03-13 12:34] VITALS: BP 122/74; TEMP 97.8
--- NOTE | 2019-03-13 13:56 | DIS ---
DATE OF ADMISSION: 03/10/2019 DATE OF DISCHARGE: 03/13/2019 DISCHARGE DISPOSITION: Home. FOLLOWUP: 1. Follow up with primary care physician, Dr. Austin Acosta, in 3 days. 2. Follow up with Dr. Yepez in 1 week. 3. [facility] was arranged. CODE STATUS: Do not resuscitate. ALLERGIES: NO KNOWN DRUG ALLERGIES. DISCHARGE MEDICATIONS: 1. Warfarin 5 mg daily. The patient needs an INR checked in next 2 days. Primary care physician advised to follow. 2. Entresto one tablet b.i.d. 3. Prednisone 10 mg daily for next 3 days. 4. Lasix 40 mg daily. 5. Folic acid 1 mg daily. 6. Vitamin B12 of 1000 mcg daily. 7. Carvedilol 3.125 mg b.i.d. 8. Lipitor 40 mg at bedtime. 9. Albuterol inhaler as needed. 10. Pepcid 20 mg b.i.d. 11. Escitalopram 10 mg daily. 12. Avodart 0.5 mg daily. 13. Aspirin 81 mg daily. INPATIENT LACQUER SHADER: Cardiology, Dr. Ann. DIAGNOSTIC TESTS: 1. Echocardiogram showed left ventricular ejection fraction of 35% to 40% with moderate mitral regurgitation, [id number] tricuspid regurgitation, mild pulmonic regurgitation. The right ventricle was moderately enlarged. 2. CT angiogram of the chest was negative for pulmonary embolism. It showed cardiomegaly with changes consistent with congestive heart failure. 3. BNP was 619. 4. Creatinine on admission was 1.57, at discharge was 1.36. 5. Troponin was negative. 6. Total bilirubin on admission was 1.7, at discharge was 0.9. 7. WBC of 7.9 with hemoglobin 12.9. 8. INR at discharge is 1.5. 9. Respiratory viral panel was positive for rhinovirus. Blood culture was negative. The patient was seen and examined on the day of discharge. Denies any new complaints. No chest pain, shortness of breath, or palpitations reported. BRIEF HOSPITAL COURSE: The patient is an 83-year-old male with medication noncompliance, presented to the hospital with shortness of breath. His workup was consistent with acute hypoxic respiratory failure secondary to congestive heart failure along with rhinovirus infection. CT angiogram of the chest was negative for pulmonary embolism. Low-dose steroid was added due to significant wheezing. After diuresis, his symptoms had significantly improved. He was also evaluated by Cardiology, Dr. Ann, who started him on Entresto. He has been extensively counseled on congestive heart failure. The patient has been noncompliant with his medications including warfarin and Lasix. He was extensively counseled to be compliant with all of his medications. I discussed the case with his family member. He will need a PT/INR checked in 2 days. Home health care has been arranged. I discussed the case with Cardiology, Dr. Ann, who agrees with the agrees with the above plan of care. FINAL DIAGNOSES: 1. Acute hypoxic respiratory failure. 2. Acute on chronic systolic heart failure exacerbation secondary to medication noncompliance. 3. Acute rhinovirus bronchitis. 4. Chronic kidney disease, stage 3. 5. Hypertension. 6. Chronic atrial fibrillation, on anticoagulation. 7. Subtherapeutic INR. 8. Hyperlipidemia. 9. Medication noncompliance. 10. Abnormal LFTs secondary to passive hepatic congestion. 11. Do not resuscitate. 12. Chronic anemia. 13. History of folic acid deficiency. 14. Benign prostatic hypertrophy. Total time coordinating the discharge of this patient was 33 minutes. The patient was extensively counseled to be compliant with all of his medications. Job ID: [id number]
== END 2019-03-13 13:07 | disposition home health service (06) | DRG 291 ==
LOC: ERS 08:06 → 2NO 12:32
PROVIDERS: ADMIT Internal Medicine; ATTEND Internal Medicine
DX: I13.0 Hypertensive heart and chronic kidney disease with heart failure and stage 1 through stage 4 chronic kidney disease, or unspecified chronic kidney disease (principal); I50.23 Acute on chronic systolic (congestive) heart failure; J96.01 Acute respiratory failure with hypoxia; I48.20 Chronic atrial fibrillation, unspecified; K76.1 Chronic passive congestion of liver; D63.8 Anemia in other chronic diseases classified elsewhere; N18.3 Chronic kidney disease, stage 3 (moderate); Z66 Do not resuscitate; J20.6 Acute bronchitis due to rhinovirus; R79.1 Abnormal coagulation profile; E78.5 Hyperlipidemia, unspecified; I25.5 Ischemic cardiomyopathy; F41.9 Anxiety disorder, unspecified; F32.9 Major depressive disorder, single episode, unspecified; I25.10 Atherosclerotic heart disease of native coronary artery without angina pectoris; N40.0 Benign prostatic hyperplasia without lower urinary tract symptoms; Z91.14 Patient's other noncompliance with medication regimen; Z95.1 Presence of aortocoronary bypass graft; Z79.01 Long term (current) use of anticoagulants; Z95.0 Presence of cardiac pacemaker; Z90.49 Acquired absence of other specified parts of digestive tract; D63.1 Anemia in chronic kidney disease
CPT/HCPCS: 36415; 71046; 71275; 80053; 83605; 83735; 83880; 84484; 85025; 85610; 85730; 87040; 87149; 87633; 90471; 90662; 93005; 93306; 94640; 94760; 96361; 96365; 96375; G0008; J0456; J0696; J1940; J2930; J3370; J3490; J7050; J7512; J7620; Q9966

== ENCOUNTER 2020-04-26 19:35 | Emergency (ER) | payer MEDICARE ==
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
[2020-04-26] MEDS ORDERED: Boostrix 0.5 ML (Tdap) VIAL ONE ×2 (21:41→21:46)
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
== END 2020-04-26 23:39 | disposition home or self-care (01) ==
LOC: ERS 19:35
DX: S51.011A Laceration without foreign body of right elbow, initial encounter (principal); I10 Essential (primary) hypertension; I25.10 Atherosclerotic heart disease of native coronary artery without angina pectoris; V89.2XXA Person injured in unspecified motor-vehicle accident, traffic, initial encounter
CPT/HCPCS: 70450; 72125; 90471; 90715

== ENCOUNTER 2021-04-23 13:04 | Emergency (ER) | payer MEDICARE, OTHER ==
[2021-04-23] MEDS ORDERED: Metoclopramide HCl 10 MG/2 ML VIAL ONE (14:23)
[2021-04-23] MEDS ORDERED: Acetaminophen 500 MG TAB ONE (14:23)
[2021-04-23 14:33] LABS: #Lymphocytes 0.4 thou/uL (1.20-3.40); #Monocytes 0.6 thou/uL (0.11-0.59); #Neutrophils 5.3 thou/uL (1.40-6.50); %Basophils 0.4 % (0.0-1.0); %Eosinophils 0.2 % (0.0-10.0); %Lymphocytes 6.2 % (21.0-51.0); %Neutrophils 84.2 % (42.0-75.0); Hemoglobin 15.2 g/dL (14.0-18.0); Mean Corpuscular HGB CONC 30.9 g/dL (32.0-36.0); Mean Corpuscular Hemoglobin 33.7 pg (27.0-31.0); Mean Platelet Volume 7.5 fL (7.4-10.4); Platelet Count 160 thou/uL (130-400); RBC Distribution Width 13.6 % (11.5-14.5); White Blood Cell (WBC) Count 6.2 thou/uL (4.8-10.8)
[2021-04-23 14:54] LABS: ALT (SGPT) 16 U/L (8-55); AST (SGOT) 23 U/L (5-34); Albumin 3.1 g/dL (3.4-4.8); Alkaline Phosphatase 96 U/L (40-110); Anion Gap 15 mmol/L (10-20); BUN (Urea Nitrogen) 22 mg/dL (8.4-25.7); Bilirubin, Total 1.9 mg/dL (0.2-1.2); CK (CPK) 75 U/L (30-200); Calc. Creatinine Clearance 0 mL/min (70-130); Calcium 8.4 mg/dL (7.8-10.44); Carbon Dioxide 20 mmol/L (23-31); Chloride 108 mmol/L (98-107); Globulin 2.9 g/dL (2.4-3.5); Glucose 95 mg/dL (83-110); Lipase 11 U/L (8-78); Potassium 4.6 mmol/L (3.5-5.1); Sodium 138 mmol/L (136-145)
[2021-04-23 15:01] LABS: MDiff Complete? YES; Macrocytosis SLIGHT = 6-15 cells (100X) (0-5/hpf); Platelet Morphology Comment Appears Adequate; Polychromasia SLIGHT = 2-3 cells (100X) (0-2/hpf)
== END 2021-04-23 16:52 | disposition home or self-care (01) ==
LOC: ERS 13:04
DX: R51.9 Headache, unspecified (principal); I10 Essential (primary) hypertension
CPT/HCPCS: 36415; 70450; 80053; 82550; 83690; 84484; 85025; 93005; 96365; J2765